=== PATIENT | male | born 1980 | race Caucasian/White ===

== ENCOUNTER 2018-01-10 14:20 | Inpatient (IN) | payer OTHER ==
[2018-01-10 14:44] VITALS: BMI 23.6
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
[2018-01-10] MEDS ORDERED: MAGNESIUM HYDROX 2400MG/30ML ORAL SUSPENSION 30 ML CUP PO PRN (18:12)
[2018-01-10] MEDS ORDERED: MAGNESIUM CITRATE 300 ML BOTTLE PO PRN (18:12)
[2018-01-10] MEDS ORDERED: MENTHOL/PHENOL 1 EACH UD MM PRN (18:12)
[2018-01-10] MEDS ORDERED: guaiFENesin/D-METHORPHAN HB 10 ML UNIT-DOSE CUPS PO PRN (18:12)
[2018-01-10] MEDS ORDERED: LOPERAMIDE HCL 2 MG CAPSULE PO PRN (18:12)
[2018-01-10] MEDS ORDERED: ACETAMINOPHEN 325 MG TABLET (FP) PO PRN (18:12)
[2018-01-10] MEDS ORDERED: P-EPHED 60MG/TRIPROLIDI 2.5MG TABLET PO PRN (18:12)
[2018-01-10] MEDS ORDERED: MAG HYDROX/AL HYDROX/SIMETH 30 ML UNIT-DOSE CUP PO PRN (18:12)
[2018-01-10] MEDS ORDERED: TUBERCULIN PPD 5 TU/0.1ML VIAL ID ONE (20:46)
[2018-01-10] MEDS: THIAMINE HCL 100 MG TABLET (FP) PO SCH (21:35)
[2018-01-10] MEDS: levETIRAcetam 500 MG TABLET (FP) PO SCH (21:35)
[2018-01-10] MEDS ORDERED: MELATONIN 5 MG TABLETS PO PRN (22:00)
[2018-01-10 23:07] LABS: URINE APPEARANCE CLEAR; URINE BILIRUBIN NEGATIVE (<2.0 mg/dL); URINE COLOR AMBER; URINE GLUCOSE (UA) NEGATIVE (NEGATIVE); URINE KETONE TRACE (NEGATIVE); URINE LEUK ESTERASE NEGATIVE (NEGATIVE); URINE NITRITE NEGATIVE (NEGATIVE); URINE PROTEIN NEGATIVE (NEGATIVE); URINE UROBILINOGEN NEGATIVE mg/dL (0.2-1.0)
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
[2018-01-11 10:09] LABS: ALBUMIN 3.2 g/dl (3.4-5.0); ALK PHOS 68 U/L (45-117); ANION GAP 10 MMOL/L (8-16); BILIRUBIN,TOTAL 0.5 mg/dL (0.2-1); BLOOD UREA NITROGEN 10 mg/dL (7-18); CALCIUM 9.2 mg/dL (8.5-10.1); CHLORIDE 106 mmol/L (98-107); CO2 26 mmol/L (21-32); CREATININE 0.7 mg/dL (0.55-1.3); GLUCOSE,RANDOM 85 mg/dL (74-106); POTASSIUM 4.3 mmol/L (3.5-5.1); SGOT/AST 16 U/L (15-37); SGPT/ALT 26 U/L (13-61); SODIUM 142 mmol/L (136-145); TOT PROT 6.6 g/dl (6.4-8.2)
[2018-01-11] MEDS: SERTRALINE HCL 50 MG TABLET (FP) PO SCH (10:10)
[2018-01-11] MEDS: levETIRAcetam 500 MG TABLET (FP) PO SCH ×2 (10:10→21:23)
[2018-01-11] MEDS: NICOTINE 14 MG/24 HOURS TOPICAL PATCH TD SCH (10:11)
[2018-01-11] MEDS: PRENATAL VITAMINS W/ FOLIC ACID TABLET (FP) PO SCH (10:12)
[2018-01-11 10:19] LABS: RDW 13.3 % (11.9-15.9); WHITE BLOOD COUNT 7.6 K/mm3 (4.0-10.0)
[2018-01-11 10:22] LABS: HEMATOCRIT 42.9 % (35.4-49); HEMOGLOBIN 14.7 GM/dL (11.7-16.9); MCH 30.5 pg (25.7-33.7); MCHC 34.2 g/dl (32.0-35.9); MEAN CELL VOLUME 89.2 fl (80-96); MEAN PLT VOLUME 9.7 fl (7.5-11.1); PLATELET COUNT 174 K/MM3 (134-434); RBC 4.82 M/mm3 (4.00-5.60)
[2018-01-11] MEDS ORDERED: METHADONE HCL 10 MG TABLET PO ONE (10:38)
[2018-01-11] MEDS ORDERED: METHADONE HCL 40 MG DISPERSABLE TABLET ONE (10:55)
[2018-01-11] MEDS ORDERED: METHADONE HCL 10 MG TABLET ONE (10:55)
[2018-01-11] MEDS ORDERED: METHADONE 40 MG, METHADONE 20 MG PO ONE (10:55)
--- NOTE | 2018-01-11 11:14 | EKG ---
Test Reason : Blood Pressure : / mmHG Vent. Rate : 065 BPM Atrial Rate : 065 BPM P-R Int : 124 ms QRS Dur : 082 ms QT Int : 374 ms P-R-T Axes : 028 063 053 degrees QTc Int : 388 ms NORMAL SINUS RHYTHM NORMAL ECG NO PREVIOUS ECGS AVAILABLE Confirmed by FLO GALE, GRACE ([id number]) on 01/11/2018 11:14:32 AM Referred By: Confirmed By:GRACE ROSSI MD
[2018-01-11] MEDS: THIAMINE HCL 100 MG TABLET (FP) PO SCH (21:23)
[2018-01-11] MEDS: MELATONIN 5 MG TABLETS PO PRN (21:24)
[2018-01-11] MEDS: IBUPROFEN 400 MG TABLET (FP) PO PRN (21:24)
[2018-01-12] MEDS ORDERED: METHADONE HCL 10 MG TABLET PO SCH (06:00)
[2018-01-12] MEDS ORDERED: METHADONE HCL 40 MG DISPERSABLE TABLET ONE (06:11)
[2018-01-12] MEDS ORDERED: METHADONE HCL 10 MG TABLET ONE (06:11)
[2018-01-12] MEDS: METHADONE 40 MG, METHADONE 20 MG PO SCH (06:18)
[2018-01-12] MEDS: SERTRALINE HCL 50 MG TABLET (FP) PO SCH (10:10)
[2018-01-12] MEDS: levETIRAcetam 500 MG TABLET (FP) PO SCH ×2 (10:10→21:31)
[2018-01-12] MEDS: NICOTINE 14 MG/24 HOURS TOPICAL PATCH TD SCH (10:11)
[2018-01-12] MEDS: PRENATAL VITAMINS W/ FOLIC ACID TABLET (FP) PO SCH (10:11)
[2018-01-12] MEDS: hydrOXYzine PAMOATE 50 MG CAPSULE (FP) PO PRN (10:12)
[2018-01-12] MEDS ORDERED: PNEUMOCOCCAL 23 VACCINE 0.5 ML VIAL IM ONE (12:00)
[2018-01-12] MEDS ORDERED: PNEUMOC 13-VAL CONJ-DIP CRM/PF 0.5 ML DISP.SYRIN IM ONE (12:00)
[2018-01-12] MEDS ORDERED: FLU VACCINE QUAD 60 MCG/0.5 ML (MDV 18-19) IM ONE (12:00)
[2018-01-12] MEDS: THIAMINE HCL 100 MG TABLET (FP) PO SCH (21:31)
[2018-01-13] MEDS ORDERED: METHADONE HCL 10 MG TABLET ONE (04:14)
[2018-01-13] MEDS ORDERED: METHADONE HCL 40 MG DISPERSABLE TABLET ONE (04:15)
[2018-01-13] MEDS: METHADONE 40 MG, METHADONE 20 MG PO SCH (06:25)
[2018-01-13] MEDS: levETIRAcetam 500 MG TABLET (FP) PO SCH ×2 (10:18→21:21)
[2018-01-13] MEDS: SERTRALINE HCL 50 MG TABLET (FP) PO SCH (10:18)
[2018-01-13] MEDS: NICOTINE 14 MG/24 HOURS TOPICAL PATCH TD SCH (10:18)
[2018-01-13] MEDS: PRENATAL VITAMINS W/ FOLIC ACID TABLET (FP) PO SCH (10:18)
[2018-01-13] MEDS: hydrOXYzine PAMOATE 50 MG CAPSULE (FP) PO PRN (10:18)
[2018-01-13] MEDS: THIAMINE HCL 100 MG TABLET (FP) PO SCH (21:21)
[2018-01-14] MEDS ORDERED: METHADONE HCL 40 MG DISPERSABLE TABLET ONE (03:22)
[2018-01-14] MEDS ORDERED: METHADONE HCL 10 MG TABLET ONE (03:22)
[2018-01-14] MEDS: METHADONE 40 MG, METHADONE 20 MG PO SCH (06:21)
[2018-01-14] MEDS: levETIRAcetam 500 MG TABLET (FP) PO SCH ×2 (10:01→21:18)
[2018-01-14] MEDS: PRENATAL VITAMINS W/ FOLIC ACID TABLET (FP) PO SCH (10:01)
[2018-01-14] MEDS: SERTRALINE HCL 50 MG TABLET (FP) PO SCH (10:01)
[2018-01-14] MEDS: NICOTINE 14 MG/24 HOURS TOPICAL PATCH TD SCH (10:02)
[2018-01-14] MEDS: NICOTINE POLACRILEX 2 MG GUM BC PRN (10:02)
[2018-01-14] MEDS: hydrOXYzine PAMOATE 50 MG CAPSULE (FP) PO PRN (10:02)
--- NOTE | 2018-01-14 16:12 | PN ---
[facility] Progress Note Note: Vital Signs Temperature 97.9 F 01/14/18 07:13 Pulse Rate 72 01/14/18 07:13 Respiratory Rate 18 01/14/18 07:13 Blood Pressure 124/69 01/14/18 07:13 O2 Sat by Pulse Oximetry (%) Laboratory Last Values WBC 7.6 K/mm3 (4.0-10.0) 01/11/18 07:00 RBC 4.82 M/mm3 (4.00-5.60) 01/11/18 07:00 Hgb 14.7 GM/dL (11.7-16.9) 01/11/18 07:00 Hct 42.9 % (35.4-49) 01/11/18 07:00 MCV 89.2 fl (80-96) 01/11/18 07:00 MCH 30.5 pg (25.7-33.7) 01/11/18 07:00 MCHC 34.2 g/dl (32.0-35.9) 01/11/18 07:00 RDW 13.3 % (11.9-15.9) 01/11/18 07:00 Plt Count 174 K/MM3 (134-434) D 01/11/18 07:00 MPV 9.7 fl (7.5-11.1) 01/11/18 07:00 Sodium 142 mmol/L (136-145) 01/11/18 07:00 Potassium 4.3 mmol/L (3.5-5.1) 01/11/18 07:00 Chloride 106 mmol/L (98-107) 01/11/18 07:00 Carbon Dioxide 26 mmol/L (21-32) 01/11/18 07:00 Anion Gap 10 MMOL/L (8-16) 01/11/18 07:00 BUN 10 mg/dL (7-18) 01/11/18 07:00 Creatinine 0.7 mg/dL (0.55-1.3) 01/11/18 07:00 Creat Clearance w eGFR > 60 (>60) 01/11/18 07:00 Random Glucose 85 mg/dL (74-106) 01/11/18 07:00 Calcium 9.2 mg/dL (8.5-10.1) 01/11/18 07:00 Total Bilirubin 0.5 mg/dL (0.2-1) 01/11/18 07:00 AST 16 U/L (15-37) 01/11/18 07:00 ALT 26 U/L (13-61) 01/11/18 07:00 Alkaline Phosphatase 68 U/L (45-117) 01/11/18 07:00 Total Protein 6.6 g/dl (6.4-8.2) 01/11/18 07:00 Albumin 3.2 g/dl (3.4-5.0) L 01/11/18 07:00 Urine Color Lyric 01/10/18 22:02 Urine Appearance Clear 01/10/18 22:02 Urine pH 6.0 (5.0-8.0) 01/10/18 22:02 Ur Specific [place] 1.023 (1.001-1.035) 01/10/18 22:02 Urine Protein Negative (NEGATIVE) 01/10/18 22:02 Urine Glucose (UA) Negative (NEGATIVE) 01/10/18 22:02 Urine Ketones Trace (NEGATIVE) H 01/10/18 22:02 Urine Blood Negative (NEGATIVE) 01/10/18 22:02 Urine Nitrite Negative (NEGATIVE) 01/10/18 22:02 Urine Bilirubin Negative (<2.0 mg/dL) 01/10/18 22:02 Urine Urobilinogen Negative mg/dL (0.2-1.0) 01/10/18 22:02 Ur Leukocyte Esterase Negative (NEGATIVE) 01/10/18 22:02 Levetiracetam 5.1 MCG/ML (10.0-40.0) L 01/11/18 07:00 RPR Titer Nonreactive (NONREACTIVE) 01/11/18 07:00 low keppra levels loading dose 500 mg ordered repeat keppra levels in AM
[2018-01-14] MEDS ORDERED: levETIRAcetam 500 MG TABLET (FP) PO ONE (16:30)
[2018-01-14] MEDS: THIAMINE HCL 100 MG TABLET (FP) PO SCH (21:18)
[2018-01-15] MEDS ORDERED: METHADONE HCL 10 MG TABLET ONE (04:54)
[2018-01-15] MEDS ORDERED: METHADONE HCL 40 MG DISPERSABLE TABLET ONE (04:54)
[2018-01-15] MEDS: METHADONE 40 MG, METHADONE 20 MG PO SCH (06:17)
[2018-01-15] MEDS: PRENATAL VITAMINS W/ FOLIC ACID TABLET (FP) PO SCH (10:02)
[2018-01-15] MEDS: SERTRALINE HCL 50 MG TABLET (FP) PO SCH (10:02)
[2018-01-15] MEDS: levETIRAcetam 500 MG TABLET (FP) PO SCH ×2 (10:02→21:15)
[2018-01-15] MEDS: NICOTINE 14 MG/24 HOURS TOPICAL PATCH TD SCH (10:02)
[2018-01-15] MEDS: hydrOXYzine PAMOATE 50 MG CAPSULE (FP) PO PRN (10:03)
[2018-01-15] MEDS: NICOTINE POLACRILEX 2 MG GUM BC PRN (10:04)
[2018-01-15] MEDS: THIAMINE HCL 100 MG TABLET (FP) PO SCH (21:15)
[2018-01-16] MEDS ORDERED: METHADONE HCL 10 MG TABLET ONE (03:19)
[2018-01-16] MEDS ORDERED: METHADONE HCL 40 MG DISPERSABLE TABLET ONE (03:20)
[2018-01-16] MEDS: METHADONE 40 MG, METHADONE 20 MG PO SCH (06:14)
[2018-01-16] MEDS: PRENATAL VITAMINS W/ FOLIC ACID TABLET (FP) PO SCH (10:16)
[2018-01-16] MEDS: NICOTINE 14 MG/24 HOURS TOPICAL PATCH TD SCH (10:16)
[2018-01-16] MEDS: SERTRALINE HCL 50 MG TABLET (FP) PO SCH (10:16)
[2018-01-16] MEDS: levETIRAcetam 500 MG TABLET (FP) PO SCH ×2 (10:16→21:19)
[2018-01-16] MEDS: hydrOXYzine PAMOATE 50 MG CAPSULE (FP) PO PRN (10:17)
[2018-01-16] MEDS: THIAMINE HCL 100 MG TABLET (FP) PO SCH (21:19)
[2018-01-17] MEDS ORDERED: METHADONE HCL 10 MG TABLET ONE (04:27)
[2018-01-17] MEDS ORDERED: METHADONE HCL 40 MG DISPERSABLE TABLET ONE (04:27)
[2018-01-17] MEDS: METHADONE 40 MG, METHADONE 20 MG PO SCH (06:12)
[2018-01-17] MEDS: SERTRALINE HCL 50 MG TABLET (FP) PO SCH (10:03)
[2018-01-17] MEDS: PRENATAL VITAMINS W/ FOLIC ACID TABLET (FP) PO SCH (10:03)
[2018-01-17] MEDS: levETIRAcetam 500 MG TABLET (FP) PO SCH ×2 (10:03→21:19)
[2018-01-17] MEDS: NICOTINE 14 MG/24 HOURS TOPICAL PATCH TD SCH (10:03)
[2018-01-17] MEDS: hydrOXYzine PAMOATE 50 MG CAPSULE (FP) PO PRN (10:04)
[2018-01-17] MEDS: THIAMINE HCL 100 MG TABLET (FP) PO SCH (21:19)
[2018-01-18] MEDS ORDERED: METHADONE HCL 10 MG TABLET ONE (05:47)
[2018-01-18] MEDS ORDERED: METHADONE HCL 40 MG DISPERSABLE TABLET ONE (05:48)
[2018-01-18] MEDS: METHADONE 40 MG, METHADONE 20 MG PO SCH (06:16)
[2018-01-18] MEDS: levETIRAcetam 500 MG TABLET (FP) PO SCH ×2 (10:07→21:27)
[2018-01-18] MEDS: PRENATAL VITAMINS W/ FOLIC ACID TABLET (FP) PO SCH (10:07)
[2018-01-18] MEDS: SERTRALINE HCL 50 MG TABLET (FP) PO SCH (10:07)
[2018-01-18] MEDS: NICOTINE POLACRILEX 2 MG GUM BC PRN (10:07)
[2018-01-18] MEDS: NICOTINE 14 MG/24 HOURS TOPICAL PATCH TD SCH (10:08)
[2018-01-18] MEDS: hydrOXYzine PAMOATE 50 MG CAPSULE (FP) PO PRN (10:08)
[2018-01-18] MEDS: THIAMINE HCL 100 MG TABLET (FP) PO SCH (21:27)
[2018-01-18] MEDS: MELATONIN 5 MG TABLETS PO PRN (21:28)
[2018-01-19] MEDS ORDERED: METHADONE HCL 10 MG TABLET ONE (06:09)
[2018-01-19] MEDS: METHADONE 40 MG, METHADONE 20 MG PO SCH (06:10)
[2018-01-19] MEDS ORDERED: METHADONE HCL 40 MG DISPERSABLE TABLET ONE (06:10)
[2018-01-19] MEDS: levETIRAcetam 500 MG TABLET (FP) PO SCH ×2 (09:58→21:25)
[2018-01-19] MEDS: SERTRALINE HCL 50 MG TABLET (FP) PO SCH (09:58)
[2018-01-19] MEDS: hydrOXYzine PAMOATE 50 MG CAPSULE (FP) PO PRN (09:59)
[2018-01-19] MEDS: PRENATAL VITAMINS W/ FOLIC ACID TABLET (FP) PO SCH (09:59)
[2018-01-19] MEDS: NICOTINE 14 MG/24 HOURS TOPICAL PATCH TD SCH (10:00)
[2018-01-19] MEDS: THIAMINE HCL 100 MG TABLET (FP) PO SCH (21:25)
[2018-01-20] MEDS ORDERED: METHADONE HCL 40 MG DISPERSABLE TABLET ONE (02:17)
[2018-01-20] MEDS ORDERED: METHADONE HCL 10 MG TABLET ONE (02:17)
[2018-01-20] MEDS: METHADONE 40 MG, METHADONE 20 MG PO SCH (06:04)
[2018-01-20] MEDS: PRENATAL VITAMINS W/ FOLIC ACID TABLET (FP) PO SCH (09:48)
[2018-01-20] MEDS: NICOTINE POLACRILEX 2 MG GUM BC PRN (09:48)
[2018-01-20] MEDS: hydrOXYzine PAMOATE 50 MG CAPSULE (FP) PO PRN (09:48)
[2018-01-20] MEDS: SERTRALINE HCL 50 MG TABLET (FP) PO SCH (09:48)
[2018-01-20] MEDS: NICOTINE 14 MG/24 HOURS TOPICAL PATCH TD SCH (09:48)
[2018-01-20] MEDS: levETIRAcetam 500 MG TABLET (FP) PO SCH ×2 (09:48→21:19)
[2018-01-20] MEDS: THIAMINE HCL 100 MG TABLET (FP) PO SCH (21:19)
[2018-01-21] MEDS ORDERED: METHADONE HCL 10 MG TABLET ONE (04:11)
[2018-01-21] MEDS ORDERED: METHADONE HCL 40 MG DISPERSABLE TABLET ONE (04:11)
[2018-01-21] MEDS: METHADONE 40 MG, METHADONE 20 MG PO SCH (06:21)
[2018-01-21] MEDS: PRENATAL VITAMINS W/ FOLIC ACID TABLET (FP) PO SCH (09:53)
[2018-01-21] MEDS: SERTRALINE HCL 50 MG TABLET (FP) PO SCH (09:53)
[2018-01-21] MEDS: levETIRAcetam 500 MG TABLET (FP) PO SCH ×2 (09:53→21:23)
[2018-01-21] MEDS: NICOTINE 14 MG/24 HOURS TOPICAL PATCH TD SCH (09:53)
[2018-01-21] MEDS: hydrOXYzine PAMOATE 50 MG CAPSULE (FP) PO PRN (09:54)
[2018-01-21] MEDS: THIAMINE HCL 100 MG TABLET (FP) PO SCH (21:23)
[2018-01-22] MEDS ORDERED: METHADONE HCL 40 MG DISPERSABLE TABLET ONE (04:21)
[2018-01-22] MEDS ORDERED: METHADONE HCL 10 MG TABLET ONE (04:21)
[2018-01-22] MEDS: METHADONE 40 MG, METHADONE 20 MG PO SCH (06:02)
[2018-01-22] MEDS: levETIRAcetam 500 MG TABLET (FP) PO SCH ×2 (09:40→21:34)
[2018-01-22] MEDS: NICOTINE 14 MG/24 HOURS TOPICAL PATCH TD SCH (09:40)
[2018-01-22] MEDS: hydrOXYzine PAMOATE 50 MG CAPSULE (FP) PO PRN (09:40)
[2018-01-22] MEDS: PRENATAL VITAMINS W/ FOLIC ACID TABLET (FP) PO SCH (09:40)
[2018-01-22] MEDS: SERTRALINE HCL 50 MG TABLET (FP) PO SCH (09:40)
[2018-01-22] MEDS: NICOTINE POLACRILEX 2 MG GUM BC PRN (09:41)
[2018-01-22] MEDS: IBUPROFEN 400 MG TABLET (FP) PO PRN (12:35)
[2018-01-22] MEDS: THIAMINE HCL 100 MG TABLET (FP) PO SCH (21:34)
[2018-01-22] MEDS: MELATONIN 5 MG TABLETS PO PRN (21:35)
[2018-01-23] MEDS ORDERED: METHADONE HCL 10 MG TABLET ONE (04:33)
[2018-01-23] MEDS ORDERED: METHADONE HCL 40 MG DISPERSABLE TABLET ONE (04:33)
[2018-01-23] MEDS: METHADONE 40 MG, METHADONE 20 MG PO SCH (06:04)
[2018-01-23] MEDS: SERTRALINE HCL 50 MG TABLET (FP) PO SCH (10:11)
[2018-01-23] MEDS: PRENATAL VITAMINS W/ FOLIC ACID TABLET (FP) PO SCH (10:11)
[2018-01-23] MEDS: hydrOXYzine PAMOATE 50 MG CAPSULE (FP) PO PRN (10:11)
[2018-01-23] MEDS: levETIRAcetam 500 MG TABLET (FP) PO SCH ×2 (10:11→21:34)
[2018-01-23] MEDS: NICOTINE 14 MG/24 HOURS TOPICAL PATCH TD SCH (10:12)
[2018-01-23] MEDS: MELATONIN 5 MG TABLETS PO PRN (21:34)
[2018-01-23] MEDS: THIAMINE HCL 100 MG TABLET (FP) PO SCH (21:34)
[2018-01-24] MEDS ORDERED: METHADONE HCL 10 MG TABLET ONE (05:58)
[2018-01-24] MEDS ORDERED: METHADONE HCL 40 MG DISPERSABLE TABLET ONE (05:59)
[2018-01-24] MEDS: METHADONE 40 MG, METHADONE 20 MG PO SCH (06:01)
[2018-01-24] MEDS: PRENATAL VITAMINS W/ FOLIC ACID TABLET (FP) PO SCH (10:12)
[2018-01-24] MEDS: SERTRALINE HCL 50 MG TABLET (FP) PO SCH (10:12)
[2018-01-24] MEDS: NICOTINE 14 MG/24 HOURS TOPICAL PATCH TD SCH (10:12)
[2018-01-24] MEDS: levETIRAcetam 500 MG TABLET (FP) PO SCH ×2 (10:12→21:28)
[2018-01-24] MEDS: THIAMINE HCL 100 MG TABLET (FP) PO SCH (21:28)
[2018-01-24] MEDS: IBUPROFEN 400 MG TABLET (FP) PO PRN (21:29)
[2018-01-25] MEDS ORDERED: METHADONE HCL 10 MG TABLET ONE (05:27)
[2018-01-25] MEDS ORDERED: METHADONE HCL 40 MG DISPERSABLE TABLET ONE (05:28)
[2018-01-25] MEDS: METHADONE 40 MG, METHADONE 20 MG PO SCH (06:08)
[2018-01-25] MEDS: NICOTINE POLACRILEX 2 MG GUM BC PRN (09:58)
[2018-01-25] MEDS: levETIRAcetam 500 MG TABLET (FP) PO SCH ×2 (09:58→21:28)
[2018-01-25] MEDS: PRENATAL VITAMINS W/ FOLIC ACID TABLET (FP) PO SCH (09:58)
[2018-01-25] MEDS: SERTRALINE HCL 50 MG TABLET (FP) PO SCH (09:58)
[2018-01-25] MEDS: hydrOXYzine PAMOATE 50 MG CAPSULE (FP) PO PRN (09:58)
[2018-01-25] MEDS: NICOTINE 14 MG/24 HOURS TOPICAL PATCH TD SCH (09:58)
[2018-01-25] MEDS: THIAMINE HCL 100 MG TABLET (FP) PO SCH (21:28)
[2018-01-25] MEDS: MELATONIN 5 MG TABLETS PO PRN (21:28)
[2018-01-26] MEDS ORDERED: METHADONE HCL 40 MG DISPERSABLE TABLET ONE (04:29)
[2018-01-26] MEDS ORDERED: METHADONE HCL 10 MG TABLET ONE (04:29)
[2018-01-26] MEDS: METHADONE 40 MG, METHADONE 20 MG PO SCH (06:31)
[2018-01-26] MEDS: SERTRALINE HCL 50 MG TABLET (FP) PO SCH (10:00)
[2018-01-26] MEDS: PRENATAL VITAMINS W/ FOLIC ACID TABLET (FP) PO SCH (10:00)
[2018-01-26] MEDS: levETIRAcetam 500 MG TABLET (FP) PO SCH ×2 (10:00→21:21)
[2018-01-26] MEDS: NICOTINE POLACRILEX 2 MG GUM BC PRN (10:01)
[2018-01-26] MEDS: NICOTINE 14 MG/24 HOURS TOPICAL PATCH TD SCH (10:01)
[2018-01-26] MEDS: hydrOXYzine PAMOATE 50 MG CAPSULE (FP) PO PRN (10:02)
[2018-01-26] MEDS: MELATONIN 5 MG TABLETS PO PRN (21:21)
[2018-01-26] MEDS: THIAMINE HCL 100 MG TABLET (FP) PO SCH (21:21)
[2018-01-27] MEDS ORDERED: METHADONE HCL 10 MG TABLET ONE (03:23)
[2018-01-27] MEDS ORDERED: METHADONE HCL 40 MG DISPERSABLE TABLET ONE (03:24)
[2018-01-27] MEDS: METHADONE 40 MG, METHADONE 20 MG PO SCH (06:05)
[2018-01-27] MEDS: NICOTINE POLACRILEX 2 MG GUM BC PRN (10:40)
[2018-01-27] MEDS: hydrOXYzine PAMOATE 50 MG CAPSULE (FP) PO PRN (10:40)
[2018-01-27] MEDS: PRENATAL VITAMINS W/ FOLIC ACID TABLET (FP) PO SCH (10:40)
[2018-01-27] MEDS: levETIRAcetam 500 MG TABLET (FP) PO SCH ×2 (10:40→21:23)
[2018-01-27] MEDS: SERTRALINE HCL 50 MG TABLET (FP) PO SCH (10:40)
[2018-01-27] MEDS: NICOTINE 14 MG/24 HOURS TOPICAL PATCH TD SCH (10:49)
[2018-01-27] MEDS: THIAMINE HCL 100 MG TABLET (FP) PO SCH (21:23)
[2018-01-27] MEDS: MELATONIN 5 MG TABLETS PO PRN (21:23)
[2018-01-28] MEDS ORDERED: METHADONE HCL 10 MG TABLET ONE (04:11)
[2018-01-28] MEDS ORDERED: METHADONE HCL 40 MG DISPERSABLE TABLET ONE (04:11)
[2018-01-28] MEDS: METHADONE 40 MG, METHADONE 20 MG PO SCH (06:11)
[2018-01-28] MEDS: SERTRALINE HCL 50 MG TABLET (FP) PO SCH (10:50)
[2018-01-28] MEDS: levETIRAcetam 500 MG TABLET (FP) PO SCH ×2 (10:51→21:42)
[2018-01-28] MEDS: hydrOXYzine PAMOATE 50 MG CAPSULE (FP) PO PRN (10:51)
[2018-01-28] MEDS: NICOTINE 14 MG/24 HOURS TOPICAL PATCH TD SCH (10:51)
[2018-01-28] MEDS: PRENATAL VITAMINS W/ FOLIC ACID TABLET (FP) PO SCH (10:51)
[2018-01-28] MEDS: ALBUTEROL SO4 8 GM HFA INHALER IH SCH ×2 (14:27→17:14)
[2018-01-28] MEDS ORDERED: ALBUTEROL SO4 8 GM HFA INHALER IH PRN (16:46)
[2018-01-28] MEDS: THIAMINE HCL 100 MG TABLET (FP) PO SCH (21:42)
[2018-01-29] MEDS ORDERED: METHADONE HCL 40 MG DISPERSABLE TABLET ONE (03:38)
[2018-01-29] MEDS ORDERED: METHADONE HCL 10 MG TABLET ONE (03:38)
[2018-01-29] MEDS: METHADONE 40 MG, METHADONE 20 MG PO SCH (06:09)
[2018-01-29] MEDS: SERTRALINE HCL 50 MG TABLET (FP) PO SCH (10:19)
[2018-01-29] MEDS: levETIRAcetam 500 MG TABLET (FP) PO SCH ×2 (10:19→21:46)
[2018-01-29] MEDS: PRENATAL VITAMINS W/ FOLIC ACID TABLET (FP) PO SCH (10:19)
[2018-01-29] MEDS: NICOTINE 14 MG/24 HOURS TOPICAL PATCH TD SCH (10:20)
[2018-01-29] MEDS: hydrOXYzine PAMOATE 50 MG CAPSULE (FP) PO PRN (10:20)
[2018-01-29] MEDS: THIAMINE HCL 100 MG TABLET (FP) PO SCH (21:46)
[2018-01-30] MEDS ORDERED: METHADONE HCL 10 MG TABLET ONE (03:38)
[2018-01-30] MEDS ORDERED: METHADONE HCL 40 MG DISPERSABLE TABLET ONE (03:39)
[2018-01-30] MEDS: METHADONE 40 MG, METHADONE 20 MG PO SCH (06:07)
[2018-01-30] MEDS: hydrOXYzine PAMOATE 50 MG CAPSULE (FP) PO PRN ×2 (10:13→21:43)
[2018-01-30] MEDS: levETIRAcetam 500 MG TABLET (FP) PO SCH ×2 (10:13→21:43)
[2018-01-30] MEDS: SERTRALINE HCL 50 MG TABLET (FP) PO SCH (10:13)
[2018-01-30] MEDS: PRENATAL VITAMINS W/ FOLIC ACID TABLET (FP) PO SCH (10:13)
[2018-01-30] MEDS: NICOTINE 14 MG/24 HOURS TOPICAL PATCH TD SCH (10:14)
[2018-01-30] MEDS: THIAMINE HCL 100 MG TABLET (FP) PO SCH (21:43)
[2018-01-30] MEDS: MELATONIN 5 MG TABLETS PO PRN (21:43)
[2018-01-31] MEDS ORDERED: METHADONE HCL 40 MG DISPERSABLE TABLET ONE (07:03)
[2018-01-31] MEDS ORDERED: METHADONE HCL 10 MG TABLET ONE (07:03)
[2018-01-31] MEDS: METHADONE 40 MG, METHADONE 20 MG PO SCH (07:05)
[2018-01-31] MEDS: levETIRAcetam 500 MG TABLET (FP) PO SCH ×2 (10:25→21:37)
[2018-01-31] MEDS: PRENATAL VITAMINS W/ FOLIC ACID TABLET (FP) PO SCH (10:25)
[2018-01-31] MEDS: NICOTINE 14 MG/24 HOURS TOPICAL PATCH TD SCH (10:25)
[2018-01-31] MEDS: hydrOXYzine PAMOATE 50 MG CAPSULE (FP) PO PRN (10:25)
[2018-01-31] MEDS: SERTRALINE HCL 50 MG TABLET (FP) PO SCH (10:25)
[2018-01-31] MEDS: THIAMINE HCL 100 MG TABLET (FP) PO SCH (21:37)
[2018-02-01] MEDS ORDERED: METHADONE HCL 40 MG DISPERSABLE TABLET ONE (03:39)
[2018-02-01] MEDS ORDERED: METHADONE HCL 10 MG TABLET ONE (03:39)
[2018-02-01] MEDS: METHADONE 40 MG, METHADONE 20 MG PO SCH (06:07)
[2018-02-01] MEDS: SERTRALINE HCL 50 MG TABLET (FP) PO SCH (10:11)
[2018-02-01] MEDS: levETIRAcetam 500 MG TABLET (FP) PO SCH ×2 (10:11→21:37)
[2018-02-01] MEDS: PRENATAL VITAMINS W/ FOLIC ACID TABLET (FP) PO SCH (10:11)
[2018-02-01] MEDS: NICOTINE 14 MG/24 HOURS TOPICAL PATCH TD SCH (10:12)
[2018-02-01] MEDS: hydrOXYzine PAMOATE 50 MG CAPSULE (FP) PO PRN ×2 (10:14→21:37)
[2018-02-01] MEDS: NICOTINE POLACRILEX 2 MG GUM BC PRN (10:17)
[2018-02-01] MEDS: MELATONIN 5 MG TABLETS PO PRN (21:37)
[2018-02-01] MEDS: THIAMINE HCL 100 MG TABLET (FP) PO SCH (21:37)
[2018-02-02] MEDS ORDERED: METHADONE HCL 40 MG DISPERSABLE TABLET ONE (04:30)
[2018-02-02] MEDS ORDERED: METHADONE HCL 10 MG TABLET ONE (04:30)
[2018-02-02] MEDS: METHADONE 40 MG, METHADONE 20 MG PO SCH (06:05)
[2018-02-02] MEDS: PRENATAL VITAMINS W/ FOLIC ACID TABLET (FP) PO SCH (10:19)
[2018-02-02] MEDS: NICOTINE 14 MG/24 HOURS TOPICAL PATCH TD SCH (10:19)
[2018-02-02] MEDS: SERTRALINE HCL 50 MG TABLET (FP) PO SCH (10:19)
[2018-02-02] MEDS: levETIRAcetam 500 MG TABLET (FP) PO SCH ×2 (10:19→21:44)
[2018-02-02] MEDS: THIAMINE HCL 100 MG TABLET (FP) PO SCH (21:44)
[2018-02-03] MEDS ORDERED: METHADONE HCL 10 MG TABLET ONE (06:23)
[2018-02-03] MEDS ORDERED: METHADONE HCL 40 MG DISPERSABLE TABLET ONE (06:23)
[2018-02-03] MEDS: METHADONE 40 MG, METHADONE 20 MG PO SCH (06:23)
[2018-02-03] MEDS: PRENATAL VITAMINS W/ FOLIC ACID TABLET (FP) PO SCH (10:09)
[2018-02-03] MEDS: SERTRALINE HCL 50 MG TABLET (FP) PO SCH (10:09)
[2018-02-03] MEDS: levETIRAcetam 500 MG TABLET (FP) PO SCH ×2 (10:09→21:39)
[2018-02-03] MEDS: NICOTINE 14 MG/24 HOURS TOPICAL PATCH TD SCH (10:09)
[2018-02-03] MEDS: hydrOXYzine PAMOATE 50 MG CAPSULE (FP) PO PRN (10:10)
[2018-02-03] MEDS: THIAMINE HCL 100 MG TABLET (FP) PO SCH (21:39)
[2018-02-04] MEDS ORDERED: METHADONE HCL 10 MG TABLET ONE (04:25)
[2018-02-04] MEDS ORDERED: METHADONE HCL 40 MG DISPERSABLE TABLET ONE (04:26)
[2018-02-04] MEDS: METHADONE 40 MG, METHADONE 20 MG PO SCH (06:11)
[2018-02-04] MEDS: levETIRAcetam 500 MG TABLET (FP) PO SCH ×2 (10:06→21:42)
[2018-02-04] MEDS: hydrOXYzine PAMOATE 50 MG CAPSULE (FP) PO PRN (10:06)
[2018-02-04] MEDS: PRENATAL VITAMINS W/ FOLIC ACID TABLET (FP) PO SCH (10:06)
[2018-02-04] MEDS: SERTRALINE HCL 50 MG TABLET (FP) PO SCH (10:06)
[2018-02-04] MEDS: NICOTINE 14 MG/24 HOURS TOPICAL PATCH TD SCH (10:06)
[2018-02-04] MEDS: THIAMINE HCL 100 MG TABLET (FP) PO SCH (21:42)
[2018-02-05] MEDS ORDERED: METHADONE HCL 10 MG TABLET ONE (04:13)
[2018-02-05] MEDS ORDERED: METHADONE HCL 40 MG DISPERSABLE TABLET ONE (04:13)
[2018-02-05] MEDS: METHADONE 40 MG, METHADONE 20 MG PO SCH (06:04)
[2018-02-05] MEDS: SERTRALINE HCL 50 MG TABLET (FP) PO SCH (10:08)
[2018-02-05] MEDS: NICOTINE 14 MG/24 HOURS TOPICAL PATCH TD SCH (10:08)
[2018-02-05] MEDS: levETIRAcetam 500 MG TABLET (FP) PO SCH ×2 (10:08→21:35)
[2018-02-05] MEDS: PRENATAL VITAMINS W/ FOLIC ACID TABLET (FP) PO SCH (10:08)
[2018-02-05] MEDS: hydrOXYzine PAMOATE 50 MG CAPSULE (FP) PO PRN (10:11)
[2018-02-05] MEDS: IBUPROFEN 400 MG TABLET (FP) PO PRN (10:11)
[2018-02-05] MEDS: MELATONIN 5 MG TABLETS PO PRN (21:35)
[2018-02-05] MEDS: THIAMINE HCL 100 MG TABLET (FP) PO SCH (21:35)
[2018-02-06] MEDS ORDERED: METHADONE HCL 10 MG TABLET ONE (05:46)
[2018-02-06] MEDS ORDERED: METHADONE HCL 40 MG DISPERSABLE TABLET ONE (05:46)
[2018-02-06] MEDS: METHADONE 40 MG, METHADONE 20 MG PO SCH (06:15)
--- NOTE | 2018-02-06 10:11 | PN ---
Psychiatric Progress Note Vital Signs: Vital Signs Period Temp Pulse Resp BP Sys/Sotomayor Pulse Ox Last 24 Hr 98.4 F 66 18-18 106/68 Date of Session: 02/06/18 Chief Complaint:: Discharge Note HPI: Patient addressing Alcohol Dependence comorbid with Opioid Dependence on Agonist Therapy, Nicotine Dependence, Postraumatic Stress Disorder, Substance- Induced Anxiety Disorder and Substance-Induced Sleep Disorder ROS: Seizure Disorder was medically managed Current Medications: Active Medications Generic Name Dose Route Start Last Admin Trade Name Freq PRN Reason Stop Dose Admin Acetaminophen 650 mg 01/10/18 18:12 Tylenol - PO Q4H PRN FEVER Al Hydroxide/Mg Hydroxide 30 ml 01/10/18 18:12 Mylanta Oral Suspension - PO Q6H PRN DYSPEPSIA Albuterol Sulfate 2 puff 01/28/18 16:46 01/29/18 10:20 Ventolin Hfa Inhaler - IH 2 puff Q4H PRN Administration WHEEZING Eucalyptus/Menthol/Phenol/Sorbitol 1 each 01/10/18 18:12 Cepastat Lozenge - MM Q4H PRN SORE THROAT Guaifenesin 10 ml 01/10/18 18:12 Robitussin Dm - PO Q6H PRN COUGH Hydroxyzine Pamoate 50 mg 01/10/18 18:12 02/05/18 10:11 Vistaril - PO 50 mg Q4H PRN Administration AGITATION Ibuprofen 400 mg 01/10/18 18:12 02/05/18 10:11 Motrin - PO 400 mg Q6H PRN Administration Pain level 4-6 Levetiracetam 500 mg 01/10/18 22:00 02/05/18 21:35 Keppra - PO 500 mg BID JAYLEEN Administration Loperamide HCl 4 mg 01/10/18 18:12 Imodium - PO Q6H PRN DIARRHEA Magnesium Citrate 300 ml 01/10/18 18:12 Citroma - PO Q48H PRN CONSTIPATION Magnesium Hydroxide 30 ml 01/10/18 18:12 Milk Of Magnesia - PO DAILY PRN CONSTIPATION Melatonin 10 mg 01/11/18 22:00 02/05/18 21:35 Melatonin PO 10 mg HS PRN Administration INSOMNIA Methadone HCl 40 mg/ Methadone 60 mg 01/31/18 07:00 02/06/18 06:15 HCl 20 mg PO 02/07/18 06:59 60 mg DAILY@0600 JAYLEEN Administration Nicotine 14 mg 01/11/18 10:00 02/05/18 10:08 Nicoderm Patch - TD Not Given DAILY JALYEEN Nicotine Polacrilex 2 mg 01/10/18 18:12 02/01/18 10:17 Nicorette Gum - BC 2 mg Q2H PRN Administration NICOTINE REPLACEMENT RX Multivit/Folic Acid/Iron 1 tab 01/11/18 10:00 02/05/18 10:08 Vitamins ([facility]) - PO 1 tab DAILY JAYLEEN Administration Pseudoephedrine/Triprolidine 1 combo 01/10/18 18:12 Actifed - PO TID PRN NASAL CONGESTION Sertraline HCl 100 mg 01/11/18 10:00 02/05/18 10:08 Zoloft - PO 100 mg DAILY JAYLEEN Administration Thiamine HCl 100 mg 01/10/18 22:00 02/05/18 21:35 Vitamin B1 - PO 100 mg HS JAYLEEN Administration Current Side Effect: No Lab tests ordered: Yes Lab tests reviewed: Yes Provider note:: Patient will complete this program on 02/07/18. He has met his treatment goals and will continue to address his issues in outpatient treatment at [facility] at [address] [place] [id number]. 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 He responded well to Zoloft 100 mg po daily. Script for that medication will be electronically transmitted to [facility] at [address] [place] [id number]. He is stable for discharge on 02/07/18 Total face to face time:: 35 Mental Status Exam - Mental Status Exam Alert and Oriented to: Time, Place, Person Cognitive Function: Fair Patient Appearance: Well Groomed Mood: Hopeful, Euthymic Affect: Appropriate Patient Behavior: Cooperative Speech Pattern: Clear Voice Loudness: Normal Thought Process: Intact Thought Disorder: Not Present Hallucinations: Denies Suicidal Ideation: Denies Homicidal Ideation: Denies Insight/Judgement: Fair Sleep: Fair Appetite: Good Muscle strength/Tone: Normal Gait/Station: Normal Psychiatric Treatment Plan - Problem List (1) Alcohol dependence Current Visit: Yes Qualifiers: Substance use status: uncomplicated Qualified Code(s): F10.20 - Alcohol dependence, uncomplicated (2) Opioid dependence on agonist therapy Current Visit: Yes (3) Nicotine dependence Current Visit: Yes (4) PTSD (post-traumatic stress disorder) Current Visit: Yes (5) Substance-induced anxiety disorder Current Visit: Yes (6) Substance-induced sleep disorder Current Visit: Yes (7) Seizure disorder Current Visit: Yes Comment: on keppra 500 mg bid Initial treatment plan: Patient will be discharged tomorrow and referred to [facility] for outpatient treatment
[2018-02-06] MEDS: levETIRAcetam 500 MG TABLET (FP) PO SCH ×2 (10:37→21:59)
[2018-02-06] MEDS: SERTRALINE HCL 50 MG TABLET (FP) PO SCH (10:37)
[2018-02-06] MEDS: PRENATAL VITAMINS W/ FOLIC ACID TABLET (FP) PO SCH (10:37)
[2018-02-06] MEDS: hydrOXYzine PAMOATE 50 MG CAPSULE (FP) PO PRN (10:38)
[2018-02-06] MEDS: NICOTINE 14 MG/24 HOURS TOPICAL PATCH TD SCH (10:38)
[2018-02-06] MEDS: THIAMINE HCL 100 MG TABLET (FP) PO SCH (21:59)
[2018-02-07] MEDS ORDERED: METHADONE HCL 40 MG DISPERSABLE TABLET ONE (04:16)
[2018-02-07] MEDS ORDERED: METHADONE HCL 10 MG TABLET ONE (04:16)
[2018-02-07] MEDS: METHADONE 40 MG, METHADONE 20 MG PO SCH (05:58)
[2018-02-07 07:27] VITALS: BP 107/73; PULSE 78; TEMP 98.2
[2018-02-07] MEDS: levETIRAcetam 500 MG TABLET (FP) PO SCH (10:01)
[2018-02-07] MEDS: PRENATAL VITAMINS W/ FOLIC ACID TABLET (FP) PO SCH (10:01)
[2018-02-07] MEDS: SERTRALINE HCL 50 MG TABLET (FP) PO SCH (10:01)
[2018-02-07] MEDS: NICOTINE 14 MG/24 HOURS TOPICAL PATCH TD SCH (10:01)
--- NOTE | 2018-02-07 10:10 | PN ---
S Progress Note Note: PT DISCHARGING TODAY. ALERT O X 3. NAD. PT REPORTS HE HAS PRIMARY CARE PROVIDER , DR. ANNE AT [address] [place] [address] FOR MEDICAL MANAGEMENT. PT REPORTS HE HAS OWN MEDS AT HOME. Vital Signs - 24 hr 02/07/18 02/07/18 02/07/18 00:30 03:30 07:26 Temperature 98.2 F Pulse Rate 78 Respiratory 18 18 18 Rate Blood Pressure 107/73 NAD F/U WITH PMD WITHIN 1 WEEK AFTER DISCHARGE.
== END 2018-02-07 10:15 | disposition home or self-care (01) | DRG 772 ==
LOC: YASAS 14:20 → Y5N 16:51 → Y3E 01-26 20:56 → Y5N 01-26 20:58
PROVIDERS: ADMIT Psychiatry & Neurology Psychiatry; ATTEND Psychiatry & Neurology Psychiatry
PROC: HZ42ZZZ Group Counseling for Substance Abuse Treatment, Cognitive-Behavioral (ICD-10-PCS; principal; 2018-01-10)
DX: F10.20 Alcohol dependence, uncomplicated (principal); F11.20 Opioid dependence, uncomplicated; F17.210 Nicotine dependence, cigarettes, uncomplicated; F43.10 Post-traumatic stress disorder, unspecified; F19.282 Other psychoactive substance dependence with psychoactive substance-induced sleep disorder; F19.280 Other psychoactive substance dependence with psychoactive substance-induced anxiety disorder; G40.89 Other seizures; Z88.0 Allergy status to penicillin
CPT/HCPCS: 36415; 80053; 81003; 85027; 86593; 86803; 87389; 90688; 90732; 93005; 93010; G0008; G0009

== ENCOUNTER 2019-11-03 10:58 | Inpatient (IN) | payer OTHER ==
--- NOTE | 2019-11-03 11:22 | BHS.RME ---
Substance Use & Tx History - Substance Use History Alcohol Substance amount: 2 pints vodka Frequency of use: Daily Substance route: Oral Date of Last Use: 11/03/19 Xanax Substance amount: 2 mg 10-15 tabs Frequency of use: Daily Substance route: Oral Date of Last Use: 11/03/19 Nicotine Substance amount: 1 pack Frequency of use: Daily Substance route: Smoking Date of Last Use: 11/03/19 Physical/Psych/Mental Status - Behavior General Behavior: Increased activity (restlessness, agitation) Eye Contact: Normal - Cooperativeness Cooperativeness: Cooperative - Thinking Thought Processes: Tight, Logical, Goal Directed - Physical Health Problems Is patient presently having any pain?: No Does patient presently have any injuries (include location): No Does patient currently have a fever: No Is patient : No CIWA Nausea/Vomitin-No Nausea/No Vomiting Muscle Tremors: 2 Anxiety: 3 Agitation: 2 Paroxysmal Sweats: 3 Orientation: 1-Uncertain about Date Tacttile Disturbances: 0-None Auditory Disturbances: 0-None Visual Disturbances: 4-Moderate Hallucinations Headache: 0-None Present CIWA-Ar Total Score: 15
[2019-11-03 12:28] VITALS: BMI 25.1
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
[2019-11-03] MEDS ORDERED: METHOCARBAMOL 500 MG TABLET PO PRN (12:42)
[2019-11-03] MEDS ORDERED: NICOTINE POLACRILEX 2 MG GUM BUC PRN (12:42)
[2019-11-03] MEDS ORDERED: BISMUTH SUBSALICYLATE 524 MG/30 ML UD PO PRN (12:42)
[2019-11-03] MEDS ORDERED: MAGNESIUM HYDROX 2400MG/30ML ORAL SUSPENSION 30 ML CUP PO PRN (12:42)
[2019-11-03] MEDS ORDERED: IBUPROFEN 400 MG TABLET (FP) PO PRN (12:42)
[2019-11-03] MEDS ORDERED: ONDANSETRON *ODT* 4 MG TABLET SL PRN (12:42)
[2019-11-03] MEDS ORDERED: ACETAMINOPHEN 325 MG TABLET (FP) PO PRN ×2 (12:42)
[2019-11-03] MEDS ORDERED: MAGNESIUM CITRATE 300 ML BOTTLE PO PRN (12:42)
[2019-11-03] MEDS ORDERED: MAG HYDROX/AL HYDROX/SIMETH 30 ML UNIT-DOSE CUP PO PRN (12:42)
[2019-11-03] MEDS ORDERED: chlordiazePOXIDE HCL 25 MG CAPSULE PO PRN (12:42)
[2019-11-03] MEDS ORDERED: MENTHOL/PHENOL 1 EACH UD MM PRN (12:42)
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
--- NOTE | 2019-11-03 13:23 | EKG ---
Test Reason : Blood Pressure : / mmHG Vent. Rate : 079 BPM Atrial Rate : 079 BPM P-R Int : 148 ms QRS Dur : 082 ms QT Int : 376 ms P-R-T Axes : 012 065 051 degrees QTc Int : 431 ms NORMAL SINUS RHYTHM WITH SINUS ARRHYTHMIA NORMAL ECG WHEN COMPARED WITH ECG OF 10-JAN-2018 19:14, NO SIGNIFICANT CHANGE WAS FOUND Confirmed by Marimar Saleh ([id number]) on 11/03/2019 1:23:25 PM Referred By: Confirmed By:Marimar Saleh
[2019-11-03] MEDS: ALBUTEROL SO4 HFA INHALER IH SCH ×3 (13:44→21:41)
[2019-11-03] MEDS: NICOTINE 21 MG/24 HOURS TOPICAL PATCH TD SCH (13:44)
[2019-11-03] MEDS: hydrOXYzine PAMOATE 25 MG CAPSULE (FP) PO SCH ×3 (13:44→22:26)
[2019-11-03] MEDS: levETIRAcetam 500 MG TABLET (FP) PO SCH ×2 (13:44→22:26)
[2019-11-03] MEDS ORDERED: TUBERCULIN PPD 5 TU/0.1ML VIAL ID ONE (13:46)
[2019-11-03 17:42] LABS: ALBUMIN 3.9 g/dl (3.4-5.0); BILIRUBIN,TOTAL 0.2 mg/dL (0.2-1); BLOOD UREA NITROGEN 13.4 mg/dL (7-18); CALCIUM 9.1 mg/dL (8.5-10.1); POTASSIUM 4.2 mmol/L (3.5-5.1); TOT PROT 7.3 g/dl (6.4-8.2)
[2019-11-03 17:48] LABS: HEMATOCRIT 45.5 % (35.4-49); HEMOGLOBIN 15.4 GM/dL (11.7-16.9); MCH 30.7 pg (25.7-33.7); MEAN CELL VOLUME 90.4 fl (80-96); PLATELET COUNT 201 K/MM3 (134-434); RBC 5.03 M/mm3 (4.00-5.60); RDW 13.5 % (11.9-15.9)
[2019-11-03] MEDS: chlordiazePOXIDE HCL 25 MG CAPSULE PO SCH ×2 (18:23→22:26)
[2019-11-03] MEDS ORDERED: ALBUTEROL SO4 HFA INHALER IH PRN (20:52)
[2019-11-03] MEDS: MELATONIN 5 MG TABLETS PO SCH (22:26)
[2019-11-03] MEDS: THIAMINE HCL 100 MG TABLET (FP) PO SCH (22:26)
[2019-11-04] MEDS: hydrOXYzine PAMOATE 25 MG CAPSULE (FP) PO SCH ×5 (06:06→22:26)
[2019-11-04] MEDS: chlordiazePOXIDE HCL 25 MG CAPSULE PO SCH ×4 (06:06→22:26)
[2019-11-04] MEDS ORDERED: METHADONE HCL 10 MG TABLET PO ONE (09:07)
[2019-11-04] MEDS ORDERED: METHADONE 80 MG, METHADONE 10 MG PO ONE (09:22)
--- NOTE | 2019-11-04 09:45 | PN ---
S CIWA - CIWA Score Nausea/Vomitin-No Nausea/No Vomiting Muscle Tremors: 4-Moderate,w/Arms Extend Anxiety: 4-Mod. Anxious/Guarded Agitation: 3 Paroxysmal Sweats: 1-Minimal Palms Moist Orientation: 0-Oriented Tacttile Disturbances: 0-None Auditory Disturbances: 0-None Visual Disturbances: 0-None Headache: 0-None Present CIWA-Ar Total Score: 12 BHS Progress Note (SOAP) Subjective: Pt is a 39 y/o male admitted to detox for alcohol withdrawal sx, Pt is on Librium taper protocol on Methadone 90 mg po daily with [facility]. c/oc/o sweats tremors lower back pain Objective: 11/04/19 09:44 Vital Signs - 24 hr 11/03/19 11/03/19 11/03/19 12:18 12:19 12:29 Temperature 98.2 F Pulse Rate 85 Respiratory 18 Rate Blood Pressure 101/63 O2 Sat by Pulse 95 95 Oximetry (%) 11/03/19 11/03/19 11/04/19 13:35 21:42 06:17 Temperature 97.3 F L 97.7 F 98.2 F Pulse Rate 72 79 77 Respiratory 16 16 18 Rate Blood Pressure 112/69 115/70 117/73 O2 Sat by Pulse 96 97 96 Oximetry (%) Laboratory Tests 11/03/19 11/03/19 11/03/19 12:00 12:00 12:00 WBC 10.0 RBC 5.03 Hgb 15.4 Hct 45.5 MCV 90.4 MCH 30.7 MCHC 34.0 RDW 13.5 Plt Count 201 MPV 10.0 Sodium 140 Potassium 4.2 Chloride 105 Carbon Dioxide 25 Anion Gap 10 BUN 13.4 Creatinine 1.0 Est GFR (CKD-EPI)AfAm 107.87 Est GFR (CKD-EPI)NonAf 93.07 Random Glucose 83 Calcium 9.1 Total Bilirubin 0.2 AST 32 ALT 26 Alkaline Phosphatase 75 Total Protein 7.3 Albumin 3.9 Syphilis Serology Non-reactive Alert o x 3 nad oob ambulating with steady gait Assessment: 11/04/19 20:05 withdrawal sx Plan: cont detox increase po fluids maintain safety Robaxin prn
[2019-11-04] MEDS ORDERED: METHADONE HCL 10 MG TABLET ONE (10:01)
[2019-11-04] MEDS ORDERED: METHADONE HCL 40 MG DISPERSABLE TABLET ONE (10:02)
[2019-11-04] MEDS: PRENATAL VITAMINS W/ FOLIC ACID TABLET (FP) PO SCH (10:15)
[2019-11-04] MEDS: levETIRAcetam 500 MG TABLET (FP) PO SCH ×2 (10:15→22:26)
[2019-11-04] MEDS: NICOTINE 21 MG/24 HOURS TOPICAL PATCH TD SCH (10:16)
[2019-11-04] MEDS: MELATONIN 5 MG TABLETS PO SCH (22:26)
[2019-11-04] MEDS: THIAMINE HCL 100 MG TABLET (FP) PO SCH (22:27)
[2019-11-05] MEDS ORDERED: METHADONE HCL 10 MG TABLET PO SCH (06:00)
[2019-11-05] MEDS: chlordiazePOXIDE HCL 25 MG CAPSULE PO SCH ×4 (06:07→22:08)
[2019-11-05] MEDS: hydrOXYzine PAMOATE 25 MG CAPSULE (FP) PO SCH ×5 (06:07→22:08)
[2019-11-05] MEDS ORDERED: METHADONE HCL 10 MG TABLET ONE (06:08)
[2019-11-05] MEDS ORDERED: METHADONE HCL 40 MG DISPERSABLE TABLET ONE (06:09)
[2019-11-05] MEDS: METHADONE 80 MG, METHADONE 10 MG PO SCH (06:12)
[2019-11-05] MEDS: levETIRAcetam 500 MG TABLET (FP) PO SCH ×2 (10:02→22:08)
[2019-11-05] MEDS: PRENATAL VITAMINS W/ FOLIC ACID TABLET (FP) PO SCH (10:02)
[2019-11-05] MEDS: NICOTINE 21 MG/24 HOURS TOPICAL PATCH TD SCH (10:03)
--- NOTE | 2019-11-05 12:37 | PN ---
S CIWA - CIWA Score Nausea/Vomitin-No Nausea/No Vomiting Muscle Tremors: 4-Moderate,w/Arms Extend Anxiety: 4-Mod. Anxious/Guarded Agitation: 2 Paroxysmal Sweats: No Perspiration Orientation: 0-Oriented Tacttile Disturbances: 0-None Auditory Disturbances: 0-None Visual Disturbances: 0-None Headache: 0-None Present CIWA-Ar Total Score: 10 BHS Progress Note (SOAP) Subjective: Pt seen in rounds oob sitting in TV room. Reports detox proceeding well with slight withdrawal sx. medication effective. slight anxiety slight tremors Objective: 11/05/19 12:39 Vital Signs - 24 hr 11/04/19 11/04/19 11/04/19 14:00 17:05 21:54 Temperature 98 F Pulse Rate 81 82 108 H Respiratory 18 16 16 Rate Blood Pressure 113/72 111/66 132/88 O2 Sat by Pulse 97 97 94 L Oximetry (%) 11/05/19 11/05/19 05:57 09:22 Temperature 97.7 F 97.3 F L Pulse Rate 72 89 Respiratory 16 18 Rate Blood Pressure 114/70 114/68 O2 Sat by Pulse 95 96 Oximetry (%) Laboratory Tests 11/03/19 11/03/19 11/03/19 12:00 12:00 12:00 WBC 10.0 RBC 5.03 Hgb 15.4 Hct 45.5 MCV 90.4 MCH 30.7 MCHC 34.0 RDW 13.5 Plt Count 201 MPV 10.0 Sodium 140 Potassium 4.2 Chloride 105 Carbon Dioxide 25 Anion Gap 10 BUN 13.4 Creatinine 1.0 Est GFR (CKD-EPI)AfAm 107.87 Est GFR (CKD-EPI)NonAf 93.07 Random Glucose 83 Calcium 9.1 Total Bilirubin 0.2 AST 32 ALT 26 Alkaline Phosphatase 75 Total Protein 7.3 Albumin 3.9 Syphilis Serology Non-reactive COVID-19 (SHAKIRA) 11/03/19 21:00 WBC RBC Hgb Hct MCV MCH MCHC RDW Plt Count MPV Sodium Potassium Chloride Carbon Dioxide Anion Gap BUN Creatinine Est GFR (CKD-EPI)AfAm Est GFR (CKD-EPI)NonAf Random Glucose Calcium Total Bilirubin AST ALT Alkaline Phosphatase Total Protein Albumin Syphilis Serology COVID-19 (SHAKIRA) Not detected covid-19 not detected alert o x 3 nad oob ambulating with steady gait Assessment: 11/05/19 12:39 withdrawal sx Plan: continue detox increase po fluids maintain safety
[2019-11-05 14:02] LABS: PH,URINE 6.5 (5.0-8.0); URINE APPEARANCE CLEAR; URINE BILIRUBIN NEGATIVE (NEGATIVE); URINE COLOR YELLOW; URINE GLUCOSE (UA) NEGATIVE (NEGATIVE); URINE KETONE NEGATIVE (NEGATIVE); URINE LEUK ESTERASE NEGATIVE (NEGATIVE); URINE NITRITE NEGATIVE (NEGATIVE); URINE PROTEIN NEGATIVE (NEGATIVE); URINE UROBILINOGEN 0.2 mg/dL (0.2-1.0)
[2019-11-05] MEDS: THIAMINE HCL 100 MG TABLET (FP) PO SCH (22:08)
[2019-11-05] MEDS: MELATONIN 5 MG TABLETS PO SCH (22:08)
[2019-11-06] MEDS ORDERED: chlordiazePOXIDE HCL 10 MG CAPSULE PO PRN
[2019-11-06] MEDS ORDERED: METHADONE HCL 10 MG TABLET ONE (04:04)
[2019-11-06] MEDS ORDERED: METHADONE HCL 40 MG DISPERSABLE TABLET ONE (04:06)
[2019-11-06] MEDS: chlordiazePOXIDE HCL 10 MG CAPSULE PO SCH ×4 (06:11→22:09)
[2019-11-06] MEDS: METHADONE 80 MG, METHADONE 10 MG PO SCH (06:11)
[2019-11-06] MEDS: hydrOXYzine PAMOATE 25 MG CAPSULE (FP) PO SCH ×5 (06:14→22:09)
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
[2019-11-06] MEDS: levETIRAcetam 500 MG TABLET (FP) PO SCH ×2 (11:03→22:09)
[2019-11-06] MEDS: PRENATAL VITAMINS W/ FOLIC ACID TABLET (FP) PO SCH (11:03)
[2019-11-06] MEDS: NICOTINE 21 MG/24 HOURS TOPICAL PATCH TD SCH (11:03)
--- NOTE | 2019-11-06 13:19 | PN ---
S CIWA - CIWA Score Nausea/Vomitin-No Nausea/No Vomiting Muscle Tremors: 1-None Visible, but [place] Anxiety: 3 Agitation: 2 Paroxysmal Sweats: 1-Minimal Palms Moist Orientation: 0-Oriented Tacttile Disturbances: 0-None Auditory Disturbances: 0-None Visual Disturbances: 0-None Headache: 0-None Present CIWA-Ar Total Score: 7 BHS Progress Note (SOAP) Subjective: Pt seen in day room at rounds watching TV. Slight anxiety otherwise states detox proceeding well with regimen. Objective: 11/06/19 13:17 Vital Signs - 24 hr 11/05/19 11/05/19 11/05/19 16:35 20:25 21:23 Temperature 97 F L 98.4 F Pulse Rate 88 89 Respiratory 16 18 Rate Blood Pressure 127/71 121/78 O2 Sat by Pulse 97 97 Oximetry (%) 11/06/19 11/06/19 06:01 06:24 Temperature 97.8 F Pulse Rate 80 88 Respiratory 18 20 Rate Blood Pressure 114/84 118/79 O2 Sat by Pulse 97 Oximetry (%) Laboratory Tests 11/03/19 11/03/19 11/03/19 12:00 12:00 12:00 WBC 10.0 RBC 5.03 Hgb 15.4 Hct 45.5 MCV 90.4 MCH 30.7 MCHC 34.0 RDW 13.5 Plt Count 201 MPV 10.0 Sodium 140 Potassium 4.2 Chloride 105 Carbon Dioxide 25 Anion Gap 10 BUN 13.4 Creatinine 1.0 Est GFR (CKD-EPI)AfAm 107.87 Est GFR (CKD-EPI)NonAf 93.07 Random Glucose 83 Calcium 9.1 Total Bilirubin 0.2 AST 32 ALT 26 Alkaline Phosphatase 75 Total Protein 7.3 Albumin 3.9 Urine Color Urine Appearance Urine pH Ur Specific [place] Urine Protein Urine Glucose (UA) Urine Ketones Urine Blood Urine Nitrite Urine Bilirubin Urine Urobilinogen Ur Leukocyte Esterase Syphilis Serology Non-reactive COVID-19 (SHAKIRA) 11/03/19 11/05/19 21:00 11:50 WBC RBC Hgb Hct MCV MCH MCHC RDW Plt Count MPV Sodium Potassium Chloride Carbon Dioxide Anion Gap BUN Creatinine Est GFR (CKD-EPI)AfAm Est GFR (CKD-EPI)NonAf Random Glucose Calcium Total Bilirubin AST ALT Alkaline Phosphatase Total Protein Albumin Urine Color Yellow Urine Appearance Clear Urine pH 6.5 Ur Specific [place] 1.012 Urine Protein Negative Urine Glucose (UA) Negative Urine Ketones Negative Urine Blood Negative Urine Nitrite Negative Urine Bilirubin Negative Urine Urobilinogen 0.2 Ur Leukocyte Esterase Negative Syphilis Serology COVID-19 (SHAKIRA) Not detected covid-19 not detected alert o x 3 nad oob with steady gait Assessment: 11/06/19 13:19 withdrawal sx Plan: cont detox increase po fluids maintain safety
[2019-11-06] MEDS: THIAMINE HCL 100 MG TABLET (FP) PO SCH (22:09)
[2019-11-06] MEDS: MELATONIN 5 MG TABLETS PO SCH (22:09)
[2019-11-07] MEDS ORDERED: METHADONE HCL 40 MG DISPERSABLE TABLET ONE (04:16)
[2019-11-07] MEDS ORDERED: METHADONE HCL 10 MG TABLET ONE (04:16)
[2019-11-07] MEDS ORDERED: chlordiazePOXIDE HCL 10 MG CAPSULE PO SCH (05:00)
[2019-11-07] MEDS: METHADONE 80 MG, METHADONE 10 MG PO SCH (06:02)
[2019-11-07] MEDS: hydrOXYzine PAMOATE 25 MG CAPSULE (FP) PO SCH ×2 (06:02→09:32)
[2019-11-07 07:05] VITALS: BP 121/77; PULSE 84; TEMP 97.3
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
[2019-11-07] MEDS: levETIRAcetam 500 MG TABLET (FP) PO SCH (09:32)
[2019-11-07] MEDS: PRENATAL VITAMINS W/ FOLIC ACID TABLET (FP) PO SCH (09:32)
[2019-11-07] MEDS: NICOTINE 21 MG/24 HOURS TOPICAL PATCH TD SCH (09:32)
[2019-11-08] MEDS ORDERED: chlordiazePOXIDE HCL 10 MG CAPSULE PO ONE (05:00)
== END 2019-11-07 09:20 | disposition home or self-care (01) | DRG 773 ==
LOC: YASAS 10:58 → Y5N DETOX 12:01
PROVIDERS: ADMIT Allergy & Immunology; ATTEND Allergy & Immunology
PROC: HZ2ZZZZ Detoxification Services for Substance Abuse Treatment (ICD-10-PCS; principal; 2019-11-03)
DX: F10.230 Alcohol dependence with withdrawal, uncomplicated (principal); F11.20 Opioid dependence, uncomplicated; F13.20 Sedative, hypnotic or anxiolytic dependence, uncomplicated; F12.20 Cannabis dependence, uncomplicated; F17.210 Nicotine dependence, cigarettes, uncomplicated; F31.9 Bipolar disorder, unspecified; F19.282 Other psychoactive substance dependence with psychoactive substance-induced sleep disorder; F41.9 Anxiety disorder, unspecified; F43.10 Post-traumatic stress disorder, unspecified; R56.1 Post traumatic seizures; M54.5 Low back pain; Z91.410 Personal history of adult physical and sexual abuse; Z98.890 Other specified postprocedural states; Z88.0 Allergy status to penicillin; Z91.018 Allergy to other foods; Z56.0 Unemployment, unspecified; Z59.0 Homelessness
CPT/HCPCS: 36415; 80053; 80177; 81003; 85027; 86780; 93005; 93010; U0003

== ENCOUNTER 2020-03-03 11:49 | Inpatient (IN) | payer OTHER ==
[2020-03-03 15:36] VITALS: BMI 25.1
[2020-03-03] MEDS ORDERED: NICOTINE POLACRILEX 2 MG GUM BUC PRN (15:36)
[2020-03-03] MEDS ORDERED: MENTHOL/PHENOL 1 EACH UD MM PRN (15:36)
[2020-03-03] MEDS ORDERED: ACETAMINOPHEN 325 MG TABLET (FP) PO PRN ×2 (15:36)
[2020-03-03] MEDS ORDERED: chlordiazePOXIDE HCL 25 MG CAPSULE PO PRN (15:36)
[2020-03-03] MEDS ORDERED: MAGNESIUM CITRATE 300 ML BOTTLE PO PRN (15:36)
[2020-03-03] MEDS ORDERED: ONDANSETRON *ODT* 4 MG TABLET SL PRN (15:36)
[2020-03-03] MEDS ORDERED: MAG HYDROX/AL HYDROX/SIMETH 30 ML UNIT-DOSE CUP PO PRN (15:36)
[2020-03-03] MEDS ORDERED: MAGNESIUM HYDROX 2400MG/30ML ORAL SUSPENSION 30 ML CUP PO PRN (15:36)
[2020-03-03] MEDS ORDERED: BISMUTH SUBSALICYLATE 262 MG/15 ML BTL PO PRN (15:36)
[2020-03-03] MEDS ORDERED: IBUPROFEN 400 MG TABLET (FP) PO PRN (15:36)
[2020-03-03] MEDS: NICOTINE 21 MG/24 HOURS TOPICAL PATCH TD SCH (16:37)
[2020-03-03] MEDS: PRENATAL VITAMINS W/ FOLIC ACID TABLET (FP) PO SCH (16:38)
[2020-03-03] MEDS: chlordiazePOXIDE HCL 25 MG CAPSULE PO SCH ×2 (16:38→22:26)
[2020-03-03 17:37] LABS: POTASSIUM 4.2 mmol/L (3.5-5.1)
[2020-03-03 17:38] LABS: HEMATOCRIT 41.2 % (35.4-49); HEMOGLOBIN 13.7 GM/dL (11.7-16.9); MCH 29.9 pg (25.7-33.7); MCHC 33.3 g/dl (32.0-35.9); MEAN CELL VOLUME 89.9 fl (80-96); MEAN PLT VOLUME 9.4 fl (7.5-11.1); PLATELET COUNT 214 K/MM3 (134-434); RBC 4.58 M/mm3 (4.00-5.60); RDW 13.9 % (11.9-15.9); WHITE BLOOD COUNT 11.1 K/mm3 (4.0-10.0)
[2020-03-03 17:39] LABS: ALBUMIN 3.4 g/dl (3.4-5.0); CALCIUM 8.6 mg/dL (8.5-10.1)
[2020-03-03 17:40] LABS: BLOOD UREA NITROGEN 8.3 mg/dL (7-18)
[2020-03-03 17:44] LABS: BILIRUBIN,TOTAL 0.2 mg/dL (0.2-1); TOT PROT 6.3 g/dl (6.4-8.2)
[2020-03-03] MEDS: hydrOXYzine PAMOATE 25 MG CAPSULE (FP) PO SCH ×2 (18:25→22:26)
[2020-03-03] MEDS: levETIRAcetam 500 MG TABLET (FP) PO SCH (22:26)
[2020-03-03] MEDS: THIAMINE HCL 100 MG TABLET (FP) PO SCH (22:26)
[2020-03-03] MEDS: MELATONIN 5 MG TABLETS PO SCH (22:26)
[2020-03-04] MEDS: chlordiazePOXIDE HCL 25 MG CAPSULE PO SCH ×4 (06:21→22:23)
[2020-03-04] MEDS: hydrOXYzine PAMOATE 25 MG CAPSULE (FP) PO SCH (06:22)
[2020-03-04] MEDS ORDERED: METHADONE HCL 10 MG TABLET PO ONE (08:49)
[2020-03-04] MEDS ORDERED: METHADONE 80 MG, METHADONE 20 MG PO ONE (09:00)
[2020-03-04] MEDS ORDERED: METHADONE HCL 40 MG DISPERSABLE TABLET ONE (09:12)
[2020-03-04] MEDS ORDERED: METHADONE HCL 10 MG TABLET ONE (09:12)
[2020-03-04] MEDS: NICOTINE 21 MG/24 HOURS TOPICAL PATCH TD SCH (10:39)
[2020-03-04] MEDS: levETIRAcetam 500 MG TABLET (FP) PO SCH ×2 (10:39→22:23)
[2020-03-04] MEDS: PRENATAL VITAMINS W/ FOLIC ACID TABLET (FP) PO SCH (10:39)
[2020-03-04] MEDS: BACITRACIN 0.9 GM PACKET TP SCH ×2 (10:42→22:23)
[2020-03-04 11:07] LABS: HIV INTERPRETATION NEGATIVE (NEGATIVE)
[2020-03-04] MEDS: MELATONIN 5 MG TABLETS PO SCH (22:23)
[2020-03-04] MEDS: THIAMINE HCL 100 MG TABLET (FP) PO SCH (22:23)
[2020-03-05] MEDS ORDERED: METHADONE HCL 10 MG TABLET ONE (05:36)
[2020-03-05] MEDS ORDERED: METHADONE HCL 40 MG DISPERSABLE TABLET ONE (05:37)
[2020-03-05] MEDS: METHADONE 80 MG, METHADONE 20 MG PO SCH (05:37)
[2020-03-05] MEDS: chlordiazePOXIDE HCL 25 MG CAPSULE PO SCH ×4 (05:40→22:13)
[2020-03-05] MEDS ORDERED: METHADONE HCL 40 MG DISPERSABLE TABLET PO SCH (06:00)
[2020-03-05] MEDS: BACITRACIN 0.9 GM PACKET TP SCH ×2 (10:02→22:13)
[2020-03-05] MEDS: levETIRAcetam 500 MG TABLET (FP) PO SCH ×2 (10:02→22:13)
[2020-03-05] MEDS: hydrOXYzine PAMOATE 25 MG CAPSULE (FP) PO PRN ×2 (10:02→15:27)
[2020-03-05] MEDS: NICOTINE 21 MG/24 HOURS TOPICAL PATCH TD SCH (10:06)
[2020-03-05] MEDS: PRENATAL VITAMINS W/ FOLIC ACID TABLET (FP) PO SCH (10:06)
[2020-03-05] MEDS: METHOCARBAMOL 500 MG TABLET PO PRN (15:27)
[2020-03-05] MEDS: THIAMINE HCL 100 MG TABLET (FP) PO SCH (22:13)
[2020-03-05] MEDS: MELATONIN 5 MG TABLETS PO SCH (22:13)
[2020-03-06] MEDS ORDERED: chlordiazePOXIDE HCL 10 MG CAPSULE PO PRN
[2020-03-06] MEDS ORDERED: METHADONE HCL 10 MG TABLET ONE (04:50)
[2020-03-06] MEDS ORDERED: METHADONE HCL 40 MG DISPERSABLE TABLET ONE (04:51)
[2020-03-06] MEDS: chlordiazePOXIDE HCL 10 MG CAPSULE PO SCH ×4 (05:19→22:32)
[2020-03-06] MEDS: METHADONE 80 MG, METHADONE 20 MG PO SCH (05:20)
[2020-03-06] MEDS: BACITRACIN 0.9 GM PACKET TP SCH ×2 (10:38→22:31)
[2020-03-06] MEDS: levETIRAcetam 500 MG TABLET (FP) PO SCH ×2 (10:39→22:32)
[2020-03-06] MEDS: hydrOXYzine PAMOATE 25 MG CAPSULE (FP) PO PRN ×2 (10:39→14:33)
[2020-03-06] MEDS: NICOTINE 21 MG/24 HOURS TOPICAL PATCH TD SCH (11:02)
[2020-03-06] MEDS: PRENATAL VITAMINS W/ FOLIC ACID TABLET (FP) PO SCH (11:03)
[2020-03-06] MEDS: METHOCARBAMOL 500 MG TABLET PO PRN (14:33)
[2020-03-06] MEDS: MELATONIN 5 MG TABLETS PO SCH (22:32)
[2020-03-06] MEDS: THIAMINE HCL 100 MG TABLET (FP) PO SCH (22:33)
[2020-03-07] MEDS ORDERED: METHADONE HCL 10 MG TABLET ONE (04:27)
[2020-03-07] MEDS ORDERED: METHADONE HCL 40 MG DISPERSABLE TABLET ONE (04:28)
[2020-03-07] MEDS ORDERED: chlordiazePOXIDE HCL 10 MG CAPSULE PO SCH (05:00)
[2020-03-07] MEDS: METHADONE 80 MG, METHADONE 20 MG PO SCH (06:11)
[2020-03-07] MEDS: levETIRAcetam 500 MG TABLET (FP) PO SCH (10:05)
[2020-03-07] MEDS: PRENATAL VITAMINS W/ FOLIC ACID TABLET (FP) PO SCH (10:07)
[2020-03-07] MEDS: NICOTINE 21 MG/24 HOURS TOPICAL PATCH TD SCH (10:07)
[2020-03-07] MEDS: BACITRACIN 0.9 GM PACKET TP SCH (10:09)
[2020-03-07 12:52] VITALS: BP 124/73; PULSE 93; TEMP 98.7
[2020-03-08] MEDS ORDERED: chlordiazePOXIDE HCL 10 MG CAPSULE PO ONE (05:00)
== END 2020-03-07 16:33 | disposition left against medical advice (07) | DRG 770 ==
LOC: YASAS 11:49 → Y6N 15:37
PROVIDERS: ADMIT Allergy & Immunology; ATTEND Allergy & Immunology
PROC: HZ2ZZZZ Detoxification Services for Substance Abuse Treatment (ICD-10-PCS; principal; 2020-03-03)
DX: F10.230 Alcohol dependence with withdrawal, uncomplicated (principal); F11.20 Opioid dependence, uncomplicated; F13.20 Sedative, hypnotic or anxiolytic dependence, uncomplicated; F12.20 Cannabis dependence, uncomplicated; F17.213 Nicotine dependence, cigarettes, with withdrawal; F19.280 Other psychoactive substance dependence with psychoactive substance-induced anxiety disorder; F19.282 Other psychoactive substance dependence with psychoactive substance-induced sleep disorder; F43.10 Post-traumatic stress disorder, unspecified; G40.909 Epilepsy, unspecified, not intractable, without status epilepticus; S00.81XA Abrasion of other part of head, initial encounter; W19.XXXA Unspecified fall, initial encounter; Y93.89 Activity, other specified; Y92.85 Railroad track as the place of occurrence of the external cause; Y99.8 Other external cause status; Z56.0 Unemployment, unspecified; Z59.0 Homelessness; Z88.0 Allergy status to penicillin; Z91.013 Allergy to seafood
CPT/HCPCS: 36415; 80053; 85027; 86780; 87389; C9803; U0003

== ENCOUNTER 2021-09-22 12:10 | Inpatient (IN) | payer OTHER ==
[2021-09-22 12:54] VITALS: BMI 24.3
[2021-09-22] MEDS ORDERED: chlordiazePOXIDE HCL 25 MG CAPSULE PO PRN (13:23)
[2021-09-22] MEDS ORDERED: BISMUTH SUBSALICYLATE 524 MG/30 ML PO PRN (13:23)
[2021-09-22] MEDS ORDERED: BENZOCAINE/MENTHOL (CHLORASEPTIC ) LOZENGE MM PRN (13:23)
[2021-09-22] MEDS ORDERED: MAGNESIUM HYDROX 2400MG/30ML ORAL SUSPENSION 30 ML CUP PO PRN (13:23)
[2021-09-22] MEDS ORDERED: MAG HYDROX/AL HYDROX/SIMETH 30 ML UNIT-DOSE CUP PO PRN (13:23)
[2021-09-22] MEDS ORDERED: LOPERAMIDE HCL 2 MG CAPSULE PO PRN (13:23)
[2021-09-22] MEDS ORDERED: IBUPROFEN 400 MG TABLET (FP) PO PRN (13:23)
[2021-09-22] MEDS ORDERED: ACETAMINOPHEN 325 MG TABLET (FP) PO PRN ×2 (13:23)
[2021-09-22] MEDS ORDERED: MAGNESIUM CITRATE 300 ML BOTTLE PO PRN (13:23)
[2021-09-22] MEDS ORDERED: ONDANSETRON *ODT* 4 MG TABLET SL PRN (13:23)
[2021-09-22] MEDS ORDERED: NICOTINE 10 MG CARTRIDGE (INHALER) IH PRN (13:23)
[2021-09-22] MEDS ORDERED: IBUPROFEN 600 MG TABLET (FP) PO PRN (13:23)
[2021-09-22] MEDS ORDERED: DICYCLOMINE HCL 10 MG CAPSULE PO PRN (13:23)
[2021-09-22] MEDS: hydrOXYzine PAMOATE 25 MG CAPSULE (FP) PO SCH ×3 (15:46→22:39)
[2021-09-22] MEDS: chlordiazePOXIDE HCL 25 MG CAPSULE PO SCH ×2 (18:05→22:39)
[2021-09-22] MEDS: METHOCARBAMOL 500 MG TABLET PO PRN (22:39)
[2021-09-22] MEDS: THIAMINE HCL 100 MG TABLET (FP) PO SCH (22:39)
[2021-09-22] MEDS: MELATONIN 5 MG TABLETS PO SCH (22:39)
[2021-09-23] MEDS: chlordiazePOXIDE HCL 25 MG CAPSULE PO SCH ×4 (05:36→22:09)
[2021-09-23] MEDS: hydrOXYzine PAMOATE 25 MG CAPSULE (FP) PO SCH ×5 (05:37→22:08)
[2021-09-23] MEDS ORDERED: COLLOIDAL OATMEAL 1 BAR EACH TP PRN (08:20)
[2021-09-23] MEDS ORDERED: methaDONE HCL 40 MG DISPERSABLE TABLET PO ONE (09:00)
[2021-09-23] MEDS: PRENATAL VITAMINS W/ FOLIC ACID TABLET (FP) PO SCH (10:07)
[2021-09-23] MEDS: METHOCARBAMOL 500 MG TABLET PO PRN (10:10)
[2021-09-23 11:37] LABS: HEMATOCRIT 39.7 % (35.4-49); HEMOGLOBIN 13.9 GM/dL (11.7-16.9); MCH 33.5 pg (25.7-33.7); MEAN CELL VOLUME 95.9 fl (80-96); MEAN PLT VOLUME 9.7 fl (7.5-11.1); PLATELET COUNT 167 10^3/uL (134-434); RBC 4.15 M/mm3 (4.00-5.60); RDW 13.9 % (11.9-15.9); WHITE BLOOD COUNT 5.2 K/mm3 (4.0-10.0)
[2021-09-23 11:58] LABS: CALCIUM 8.6 mg/dL (8.5-10.1)
[2021-09-23 11:59] LABS: ALBUMIN 3.4 g/dl (3.4-5.0); BLOOD UREA NITROGEN 11.9 mg/dL (7-18)
[2021-09-23 12:01] LABS: CREATININE 0.9 mg/dL (0.55-1.3)
[2021-09-23 12:04] LABS: BILIRUBIN,TOTAL 0.6 mg/dL (0.2-1); TOT PROT 6.9 g/dl (6.4-8.2)
[2021-09-23] MEDS: THIAMINE HCL 100 MG TABLET (FP) PO SCH (22:08)
[2021-09-23] MEDS: MELATONIN 5 MG TABLETS PO SCH (22:09)
[2021-09-24] MEDS: hydrOXYzine PAMOATE 25 MG CAPSULE (FP) PO SCH ×5 (05:20→22:38)
[2021-09-24] MEDS: chlordiazePOXIDE HCL 25 MG CAPSULE PO SCH ×4 (05:20→22:38)
[2021-09-24] MEDS: methaDONE HCL 40 MG DISPERSABLE TABLET PO SCH (05:20)
[2021-09-24] MEDS: PRENATAL VITAMINS W/ FOLIC ACID TABLET (FP) PO SCH (10:23)
[2021-09-24] MEDS: MELATONIN 5 MG TABLETS PO SCH (22:38)
[2021-09-24] MEDS: THIAMINE HCL 100 MG TABLET (FP) PO SCH (22:38)
[2021-09-25] MEDS ORDERED: chlordiazePOXIDE HCL 10 MG CAPSULE PO PRN
[2021-09-25] MEDS: hydrOXYzine PAMOATE 25 MG CAPSULE (FP) PO SCH ×5 (05:06→23:09)
[2021-09-25] MEDS: chlordiazePOXIDE HCL 10 MG CAPSULE PO SCH ×4 (05:06→23:09)
[2021-09-25] MEDS: methaDONE HCL 40 MG DISPERSABLE TABLET PO SCH (05:06)
[2021-09-25] MEDS: PRENATAL VITAMINS W/ FOLIC ACID TABLET (FP) PO SCH (10:22)
[2021-09-25 14:23] VITALS: TEMP 98.6
[2021-09-25] MEDS: CLOTRIMAZOLE 1% CREAM TP SCH (15:16)
[2021-09-25] MEDS: THIAMINE HCL 100 MG TABLET (FP) PO SCH (23:08)
[2021-09-26] MEDS: CLOTRIMAZOLE 1% CREAM TP SCH (00:34)
[2021-09-26] MEDS: MELATONIN 5 MG TABLETS PO SCH (00:34)
[2021-09-26] MEDS ORDERED: chlordiazePOXIDE HCL 10 MG CAPSULE PO SCH (05:00)
[2021-09-26] MEDS: methaDONE HCL 40 MG DISPERSABLE TABLET PO SCH (05:11)
[2021-09-26] MEDS: hydrOXYzine PAMOATE 25 MG CAPSULE (FP) PO SCH (05:13)
[2021-09-26 06:38] VITALS: BP 111/65; PULSE 84
[2021-09-27] MEDS ORDERED: chlordiazePOXIDE HCL 10 MG CAPSULE PO ONE (05:00)
== END 2021-09-26 08:41 | disposition home or self-care (01) | DRG 773 ==
LOC: YASAS 12:10 → Y6N 14:21
PROVIDERS: ADMIT Allergy & Immunology; ATTEND Surgery
PROC: HZ2ZZZZ Detoxification Services for Substance Abuse Treatment (ICD-10-PCS; principal; 2021-09-22)
DX: F10.230 Alcohol dependence with withdrawal, uncomplicated (principal); F13.230 Sedative, hypnotic or anxiolytic dependence with withdrawal, uncomplicated; F11.20 Opioid dependence, uncomplicated; F14.20 Cocaine dependence, uncomplicated; F12.20 Cannabis dependence, uncomplicated; F17.210 Nicotine dependence, cigarettes, uncomplicated; F19.282 Other psychoactive substance dependence with psychoactive substance-induced sleep disorder; F19.280 Other psychoactive substance dependence with psychoactive substance-induced anxiety disorder; F19.24 Other psychoactive substance dependence with psychoactive substance-induced mood disorder; F41.9 Anxiety disorder, unspecified; F32.A Depression, unspecified; F43.10 Post-traumatic stress disorder, unspecified; Z88.0 Allergy status to penicillin
CPT/HCPCS: 36415; 80053; 85027; 86780; 87086; C9803-CS; Q0162; U0003; U0005

== ENCOUNTER 2022-09-19 10:49 | Inpatient (IN) | payer OTHER ==
[2022-09-19 11:39] VITALS: BMI 24.3
[2022-09-19] MEDS ORDERED: DICYCLOMINE HCL 10 MG CAPSULE PO PRN (11:51)
[2022-09-19] MEDS ORDERED: LORazepam 1 MG TABLET PO PRN (11:51)
[2022-09-19] MEDS ORDERED: BISMUTH SUBSALICYLATE 262 MG/15 ML BTL PO PRN (11:51)
[2022-09-19] MEDS ORDERED: NALOXONE HCL 0.4 MG/ML VIAL IM PRN (11:51)
[2022-09-19] MEDS ORDERED: IBUPROFEN 600 MG TABLET (FP) PO PRN (11:51)
[2022-09-19] MEDS ORDERED: guaiFENesin 600 MG TABLET.ER (FP) PO PRN (11:51)
[2022-09-19] MEDS ORDERED: NICOTINE 10 MG CARTRIDGE (INHALER) IH PRN (11:51)
[2022-09-19] MEDS ORDERED: NALOXONE HCL (KLOXXADO) 8 MG SPRAY NS PRN (11:51)
[2022-09-19] MEDS ORDERED: BENZONATATE 200 MG CAPSULE PO PRN (11:51)
[2022-09-19] MEDS ORDERED: LORazepam 2 MG TABLET PO ONE (11:51)
[2022-09-19] MEDS ORDERED: MAG HYDROX/AL HYDROX/SIMETH 30 ML UNIT-DOSE CUP PO PRN (11:51)
[2022-09-19] MEDS ORDERED: POLYETHYLENE GLYCOL (HEALTHYLAX) 3350 17 GM PACKET PO PRN (11:51)
[2022-09-19] MEDS ORDERED: ACETAMINOPHEN 325 MG TABLET (FP) PO PRN (11:51)
[2022-09-19] MEDS ORDERED: BENZOCAINE/MENTHOL (CHLORASEPTIC ) LOZENGE MM PRN (11:51)
[2022-09-19] MEDS ORDERED: LOPERAMIDE HCL 2 MG CAPSULE PO PRN (11:51)
[2022-09-19] MEDS ORDERED: MAGNESIUM HYDROX 2400MG/30ML ORAL SUSPENSION 30 ML CUP PO PRN (11:51)
[2022-09-19] MEDS ORDERED: ONDANSETRON *ODT* 4 MG TABLET SL PRN (11:51)
[2022-09-19] MEDS ORDERED: IBUPROFEN 400 MG TABLET (FP) PO PRN (11:51)
[2022-09-19] MEDS: PRENATAL VITAMINS W/ FOLIC ACID TABLET (FP) PO SCH (13:25)
[2022-09-19] MEDS: NICOTINE 14 MG/24 HOURS TOPICAL PATCH TD SCH (13:25)
[2022-09-19] MEDS ORDERED: PRENATAL VITAMINS W/ FOLIC ACID TABLET (FP) PO ONE (13:29)
[2022-09-19] MEDS ORDERED: ONDANSETRON *ODT* 4 MG TABLET ONE (13:29)
[2022-09-19] MEDS ORDERED: LORazepam 2 MG TABLET ONE (13:29)
[2022-09-19] MEDS ORDERED: NICOTINE 14 MG/24 HOURS TOPICAL PATCH TD ONE (13:29)
[2022-09-19 16:52] LABS: POTASSIUM 4.3 mmol/L (3.5-5.1)
[2022-09-19 16:54] LABS: HEMATOCRIT 42.1 % (35.4-49); HEMOGLOBIN 14.2 GM/dL (11.7-16.9); MCH 29.6 pg (25.7-33.7); MCHC 33.8 g/dl (32.0-35.9); MEAN CELL VOLUME 87.6 fl (80-96); MEAN PLT VOLUME 9.4 fl (7.5-11.1); PLATELET COUNT 233 10^3/uL (134-434); RBC 4.81 M/mm3 (4.00-5.60); RDW 13.5 % (11.9-15.9); WHITE BLOOD COUNT 10.4 K/mm3 (4.0-10.0)
[2022-09-19 16:55] LABS: BLOOD UREA NITROGEN 7.9 mg/dL (7-18)
[2022-09-19 16:56] LABS: ALBUMIN 3.4 g/dl (3.4-5.0)
[2022-09-19 16:58] LABS: CREATININE 0.8 mg/dL (0.55-1.3)
[2022-09-19 17:00] LABS: TOT PROT 6.5 g/dl (6.4-8.2)
[2022-09-19 17:03] LABS: BILIRUBIN,TOTAL 0.8 mg/dL (0.2-1)
[2022-09-19] MEDS: LORazepam 2 MG TABLET PO SCH ×2 (17:36→22:42)
[2022-09-19] MEDS: THIAMINE HCL 100 MG TABLET (FP) PO SCH (22:42)
[2022-09-19] MEDS: MELATONIN 5 MG TABLETS PO SCH (22:42)
[2022-09-20] MEDS: LORazepam 2 MG TABLET PO SCH ×4 (05:36→22:06)
[2022-09-20] MEDS ORDERED: methaDONE HCL 10 MG TABLET PO SCH (06:00)
[2022-09-20] MEDS: PRENATAL VITAMINS W/ FOLIC ACID TABLET (FP) PO SCH (10:16)
[2022-09-20] MEDS: METHOCARBAMOL 500 MG TABLET PO PRN (10:17)
[2022-09-20] MEDS: hydrOXYzine PAMOATE 25 MG CAPSULE (FP) PO PRN (10:17)
[2022-09-20] MEDS: NICOTINE 14 MG/24 HOURS TOPICAL PATCH TD SCH (10:19)
[2022-09-20] MEDS: THIAMINE HCL 100 MG TABLET (FP) PO SCH (22:06)
[2022-09-20] MEDS: MELATONIN 5 MG TABLETS PO SCH (22:07)
[2022-09-21] MEDS: LORazepam 1 MG TABLET PO SCH ×4 (05:32→22:27)
[2022-09-21] MEDS: METHOCARBAMOL 500 MG TABLET PO PRN ×2 (10:36→17:07)
[2022-09-21] MEDS: PRENATAL VITAMINS W/ FOLIC ACID TABLET (FP) PO SCH (10:36)
[2022-09-21] MEDS: hydrOXYzine PAMOATE 25 MG CAPSULE (FP) PO PRN (10:36)
[2022-09-21] MEDS: NICOTINE 14 MG/24 HOURS TOPICAL PATCH TD SCH (10:38)
[2022-09-21 11:56] LABS: HEMATOCRIT 45.8 % (35.4-49); MCH 29.6 pg (25.7-33.7); MCHC 32.9 g/dl (32.0-35.9); MEAN CELL VOLUME 90.1 fl (80-96); MEAN PLT VOLUME 10.4 fl (7.5-11.1); PLATELET COUNT 245 10^3/uL (134-434); RBC 5.08 M/mm3 (4.00-5.60); RDW 13.8 % (11.9-15.9); WHITE BLOOD COUNT 9.8 K/mm3 (4.0-10.0)
[2022-09-21 13:07] LABS: HIV INTERPRETATION NEGATIVE (NEGATIVE)
[2022-09-21] MEDS ORDERED: DOXYCYCLINE HYCLATE 100 MG TABLET PO SCH (18:00)
[2022-09-21] MEDS: MELATONIN 5 MG TABLETS PO SCH (22:27)
[2022-09-21] MEDS: THIAMINE HCL 100 MG TABLET (FP) PO SCH (22:27)
[2022-09-22] MEDS ORDERED: LORazepam 0.5 MG TABLET PO PRN
[2022-09-22] MEDS ORDERED: LORazepam 0.5 MG TABLET PO SCH (05:00)
[2022-09-22 06:35] VITALS: BP 107/80; PULSE 75; RESP 18; TEMP 97.5
[2022-09-23] MEDS ORDERED: LORazepam 0.5 MG TABLET PO ONE (05:00)
== END 2022-09-22 09:16 | disposition home or self-care (01) | DRG 773 ==
LOC: YASAS 10:49 → Y6N 12:41
PROVIDERS: ADMIT Allergy & Immunology; ATTEND Surgery
PROC: HZ2ZZZZ Detoxification Services for Substance Abuse Treatment (ICD-10-PCS; principal; 2022-09-19)
DX: F10.230 Alcohol dependence with withdrawal, uncomplicated (principal); F11.20 Opioid dependence, uncomplicated; F13.20 Sedative, hypnotic or anxiolytic dependence, uncomplicated; F14.20 Cocaine dependence, uncomplicated; F12.20 Cannabis dependence, uncomplicated; F17.210 Nicotine dependence, cigarettes, uncomplicated; F43.10 Post-traumatic stress disorder, unspecified; R56.1 Post traumatic seizures; N48.1 Balanitis
CPT/HCPCS: 36415; 80053; 82140; 82962; 85027; 86780; 87389; 87635; Q0162

== ENCOUNTER 2022-10-17 09:43 | Inpatient (IN) | payer OTHER ==
[2022-10-17 10:04] VITALS: BMI 23.6
[2022-10-17] MEDS ORDERED: IBUPROFEN 600 MG TABLET (FP) PO PRN (11:06)
[2022-10-17] MEDS ORDERED: NALOXONE HCL 0.4 MG/ML VIAL IM PRN (11:06)
[2022-10-17] MEDS ORDERED: IBUPROFEN 400 MG TABLET (FP) PO PRN (11:06)
[2022-10-17] MEDS ORDERED: LOPERAMIDE HCL 2 MG CAPSULE PO PRN (11:06)
[2022-10-17] MEDS ORDERED: BENZONATATE 200 MG CAPSULE PO PRN (11:06)
[2022-10-17] MEDS ORDERED: ONDANSETRON *ODT* 4 MG TABLET SL PRN (11:06)
[2022-10-17] MEDS ORDERED: guaiFENesin 600 MG TABLET.ER (FP) PO PRN (11:06)
[2022-10-17] MEDS ORDERED: MAG HYDROX/AL HYDROX/SIMETH 30 ML UNIT-DOSE CUP PO PRN (11:06)
[2022-10-17] MEDS ORDERED: DICYCLOMINE HCL 10 MG CAPSULE PO PRN (11:06)
[2022-10-17] MEDS ORDERED: ACETAMINOPHEN 325 MG TABLET (FP) PO PRN (11:06)
[2022-10-17] MEDS ORDERED: BISMUTH SUBSALICYLATE 524 MG/30 ML PO PRN (11:06)
[2022-10-17] MEDS ORDERED: MAGNESIUM HYDROX 2400MG/30ML ORAL SUSPENSION 30 ML CUP PO PRN (11:06)
[2022-10-17] MEDS ORDERED: NICOTINE POLACRILEX 2 MG GUM BUC PRN (11:06)
[2022-10-17] MEDS ORDERED: BENZOCAINE/MENTHOL (CHLORASEPTIC ) LOZENGE MM PRN (11:06)
[2022-10-17] MEDS ORDERED: POLYETHYLENE GLYCOL (HEALTHYLAX) 3350 17 GM PACKET PO PRN (11:06)
[2022-10-17] MEDS ORDERED: NALOXONE HCL (KLOXXADO) 8 MG SPRAY NS PRN (11:06)
[2022-10-17] MEDS ORDERED: diazePAM 5 MG TABLET PO PRN (11:11)
[2022-10-17] MEDS ORDERED: diazePAM 5 MG TABLET ONE (11:34)
[2022-10-17] MEDS: diazePAM 5 MG TABLET PO SCH ×3 (11:36→22:55)
[2022-10-17] MEDS: MELATONIN 5 MG TABLETS PO SCH (22:16)
[2022-10-17] MEDS: THIAMINE HCL 100 MG TABLET (FP) PO SCH (22:16)
[2022-10-17] MEDS: METHOCARBAMOL 500 MG TABLET PO PRN (22:16)
[2022-10-18] MEDS: diazePAM 5 MG TABLET PO SCH ×4 (05:21→23:10)
[2022-10-18] MEDS ORDERED: methaDONE HCL 10 MG TABLET PO SCH (07:20)
[2022-10-18] MEDS: METHOCARBAMOL 500 MG TABLET PO PRN (10:08)
[2022-10-18] MEDS: levETIRAcetam 500 MG TABLET (FP) PO SCH ×2 (10:08→22:16)
[2022-10-18] MEDS: NICOTINE 14 MG/24 HOURS TOPICAL PATCH TD SCH ×2 (10:08→10:58)
[2022-10-18] MEDS: PRENATAL VITAMINS W/ FOLIC ACID TABLET (FP) PO SCH (10:08)
[2022-10-18 11:34] LABS: HEMATOCRIT 44.1 % (35.4-49); HEMOGLOBIN 14.8 GM/dL (11.7-16.9); MCH 29.4 pg (25.7-33.7); MCHC 33.6 g/dl (32.0-35.9); MEAN CELL VOLUME 87.7 fl (80-96); MEAN PLT VOLUME 9.7 fl (7.5-11.1); PLATELET COUNT 211 10^3/uL (134-434); RBC 5.03 M/mm3 (4.00-5.60); RDW 14.3 % (11.9-15.9); WHITE BLOOD COUNT 6.9 K/mm3 (4.0-10.0)
[2022-10-18 11:47] LABS: POTASSIUM 5.4 mmol/L (3.5-5.1)
[2022-10-18 11:56] LABS: ALBUMIN 3.3 g/dl (3.4-5.0)
[2022-10-18 11:57] LABS: CALCIUM 9.8 mg/dL (8.5-10.1)
[2022-10-18 11:59] LABS: CREATININE 0.9 mg/dL (0.55-1.3)
[2022-10-18 12:01] LABS: BILIRUBIN,TOTAL 0.2 mg/dL (0.2-1); TOT PROT 6.5 g/dl (6.4-8.2)
[2022-10-18] MEDS: DOXYCYCLINE HYCLATE 100 MG TABLET PO SCH (17:32)
[2022-10-18] MEDS: THIAMINE HCL 100 MG TABLET (FP) PO SCH (22:16)
[2022-10-18] MEDS: MELATONIN 5 MG TABLETS PO SCH (22:16)
[2022-10-18] MEDS: HYDROCORTISONE 1% TOPICAL CREAM 30 GM TUBE TP SCH (22:17)
[2022-10-19] MEDS: diazePAM 5 MG TABLET PO SCH ×3 (05:12→22:02)
[2022-10-19] MEDS: DOXYCYCLINE HYCLATE 100 MG TABLET PO SCH ×2 (07:14→17:07)
[2022-10-19] MEDS: HYDROCORTISONE 1% TOPICAL CREAM 30 GM TUBE TP SCH ×2 (10:05→22:03)
[2022-10-19] MEDS: levETIRAcetam 500 MG TABLET (FP) PO SCH ×2 (10:05→22:03)
[2022-10-19] MEDS: PRENATAL VITAMINS W/ FOLIC ACID TABLET (FP) PO SCH (10:05)
[2022-10-19] MEDS: NICOTINE 14 MG/24 HOURS TOPICAL PATCH TD SCH (10:06)
[2022-10-19] MEDS: diphenhydrAMINE HCL 50 MG CAPSULE PO PRN ×2 (10:25→22:05)
[2022-10-19] MEDS ORDERED: predniSONE 10 MG TABLET (UD) PO ONE ×2 (14:42→17:00)
[2022-10-19] MEDS ORDERED: MONTELUKAST NA 5 MG TAB.CHEW PO SCH (22:00)
[2022-10-19] MEDS: THIAMINE HCL 100 MG TABLET (FP) PO SCH (22:03)
[2022-10-19] MEDS: MELATONIN 5 MG TABLETS PO SCH (22:06)
[2022-10-20] MEDS: diazePAM 5 MG TABLET PO SCH ×2 (05:10→17:06)
[2022-10-20] MEDS: diphenhydrAMINE HCL 50 MG CAPSULE PO PRN ×2 (06:31→17:05)
[2022-10-20] MEDS: DOXYCYCLINE HYCLATE 100 MG TABLET PO SCH ×2 (07:38→17:05)
[2022-10-20] MEDS ORDERED: HYDROCORTISONE 2.5% LOTION - 1 BOTTLE TP PRN (07:45)
[2022-10-20] MEDS ORDERED: predniSONE 10 MG TABLET (UD) PO ONE (10:00)
[2022-10-20] MEDS ORDERED: predniSONE 20 MG TABLET (UD) PO ONE (10:00)
[2022-10-20] MEDS: PRENATAL VITAMINS W/ FOLIC ACID TABLET (FP) PO SCH (10:18)
[2022-10-20] MEDS: levETIRAcetam 500 MG TABLET (FP) PO SCH ×2 (10:19→22:28)
[2022-10-20] MEDS: METHOCARBAMOL 500 MG TABLET PO PRN (10:19)
[2022-10-20] MEDS: NICOTINE 14 MG/24 HOURS TOPICAL PATCH TD SCH (10:19)
[2022-10-20] MEDS: THIAMINE HCL 100 MG TABLET (FP) PO SCH (22:28)
[2022-10-20] MEDS: MELATONIN 5 MG TABLETS PO SCH (22:29)
[2022-10-21] MEDS ORDERED: diazePAM 5 MG TABLET PO ONE (06:00)
[2022-10-21] MEDS ORDERED: predniSONE 10 MG TABLET (UD) PO ONE ×2 (06:00)
[2022-10-21] MEDS: diphenhydrAMINE HCL 50 MG CAPSULE PO PRN (07:14)
[2022-10-21] MEDS: DOXYCYCLINE HYCLATE 100 MG TABLET PO SCH (07:15)
[2022-10-21 09:29] VITALS: BP 116/77; PULSE 65; RESP 16; TEMP 98
[2022-10-21] MEDS: levETIRAcetam 500 MG TABLET (FP) PO SCH (09:49)
[2022-10-21] MEDS: PRENATAL VITAMINS W/ FOLIC ACID TABLET (FP) PO SCH (09:49)
[2022-10-21] MEDS: NICOTINE 14 MG/24 HOURS TOPICAL PATCH TD SCH (09:50)
[2022-10-22] MEDS ORDERED: predniSONE 10 MG TABLET (UD) PO ONE (08:11)
== END 2022-10-21 10:20 | disposition home or self-care (01) | DRG 773 ==
LOC: YASAS 09:43 → Y6N 11:21
PROVIDERS: ADMIT Allergy & Immunology; ATTEND Surgery
PROC: HZ2ZZZZ Detoxification Services for Substance Abuse Treatment (ICD-10-PCS; principal; 2022-10-17)
DX: F10.230 Alcohol dependence with withdrawal, uncomplicated (principal); F13.230 Sedative, hypnotic or anxiolytic dependence with withdrawal, uncomplicated; F11.20 Opioid dependence, uncomplicated; F14.20 Cocaine dependence, uncomplicated; F12.20 Cannabis dependence, uncomplicated; F17.210 Nicotine dependence, cigarettes, uncomplicated; F19.24 Other psychoactive substance dependence with psychoactive substance-induced mood disorder; F43.10 Post-traumatic stress disorder, unspecified; G40.909 Epilepsy, unspecified, not intractable, without status epilepticus; R21 Rash and other nonspecific skin eruption; Z88.0 Allergy status to penicillin
CPT/HCPCS: 36415; 80053; 84132; 85027; 86780; 87635; 87811

== ENCOUNTER 2024-11-26 09:55 | Inpatient (IN) | payer OTHER ==
[2024-11-26 10:32] VITALS: BMI 25.1
[2024-11-26] MEDS ORDERED: MAGNESIUM HYDROX 2400MG/30ML ORAL SUSPENSION 30 ML CUP PO PRN (11:10)
[2024-11-26] MEDS ORDERED: NALOXONE (NARCAN) HCL 4 MG/0.1 ML SPRAY NS PRN (11:10)
[2024-11-26] MEDS ORDERED: BENZONATATE 200 MG CAPSULE PO PRN (11:10)
[2024-11-26] MEDS ORDERED: BISMUTH SUBSALICYLATE 524 MG/30 ML PO PRN (11:10)
[2024-11-26] MEDS ORDERED: BENZOCAINE/MENTHOL (CHLORASEPTIC ) LOZENGE MM PRN (11:10)
[2024-11-26] MEDS ORDERED: IBUPROFEN 600 MG TABLET (FP) PO PRN (11:10)
[2024-11-26] MEDS ORDERED: guaiFENesin 600 MG TABLET.ER (FP) PO PRN (11:10)
[2024-11-26] MEDS ORDERED: IBUPROFEN 400 MG TABLET (FP) PO PRN (11:10)
[2024-11-26] MEDS ORDERED: ONDANSETRON *ODT* 4 MG TABLET SL PRN (11:10)
[2024-11-26] MEDS ORDERED: POLYETHYLENE GLYCOL (HEALTHYLAX) 3350 17 GM PACKET PO PRN (11:10)
[2024-11-26] MEDS ORDERED: LOPERAMIDE HCL 2 MG CAPSULE PO PRN (11:10)
[2024-11-26] MEDS ORDERED: DICYCLOMINE HCL 10 MG CAPSULE PO PRN (11:10)
[2024-11-26] MEDS ORDERED: MAG HYDROX/AL HYDROX/SIMETH 30 ML UNIT-DOSE CUP PO PRN (11:10)
[2024-11-26] MEDS ORDERED: ACETAMINOPHEN 325 MG TABLET (FP) PO PRN (11:10)
[2024-11-26] MEDS: ACAMPROSATE CALCIUM 333 MG TABLET.DR PO SCH (14:28)
[2024-11-26] MEDS: THIAMINE 100 MG TABLET PO SCH (22:35)
[2024-11-26] MEDS: MELATONIN 5 MG TABLETS PO SCH (22:36)
[2024-11-27] MEDS: PRENATAL VITAMINS W/ FOLIC ACID TABLET (FP) PO SCH (10:09)
[2024-11-27] MEDS: NICOTINE 14 MG/24 HOURS TOPICAL PATCH TD SCH (10:10)
[2024-11-27] MEDS: hydrOXYzine PAMOATE 25 MG CAPSULE (FP) PO PRN (10:12)
[2024-11-27] MEDS: METHOCARBAMOL 500 MG TABLET PO PRN (10:13)
[2024-11-27] MEDS: SERTRALINE HCL 50 MG TABLET (FP) PO SCH (10:40)
[2024-11-27 10:41] LABS: MCHC 33.9 g/dl (32.3-36.5); MEAN CELL VOLUME 99.7 fl (79.0-92.2); MEAN PLT VOLUME 11.5 fl (9.4-12.4); RDW 13.7 % (12.1-15.9)
[2024-11-27 10:57] LABS: GLUCOSE,RANDOM 111.0 mg/dL (74-106)
[2024-11-27 10:58] LABS: TOT PROT 7.3 g/dl (6.4-8.2)
[2024-11-27 10:59] LABS: CO2 25.0 mmol/L (21-32)
[2024-11-27 11:00] LABS: ALK PHOS 124.0 U/L (40-150)
[2024-11-27 11:03] LABS: CREATININE 0.72 mg/dL (0.55-1.3); SGOT/AST 93.0 U/L (5-34); SGPT/ALT 39.0 U/L (0-55)
[2024-11-27] MEDS: TOPIRAMATE 25 MG TABLET PO SCH (22:10)
[2024-11-29 06:10] VITALS: RESP 16
[2024-11-30 09:31] VITALS: BP 120/82; PULSE 83; TEMP 97.7
== END 2024-11-30 11:00 | disposition home or self-care (01) | DRG 773 ==
LOC: YASAS 09:55 → Y6N 13:48
PROVIDERS: ADMIT Allergy & Immunology; ATTEND Counselor Addiction (Substance Use Disorder)
PROC: HZ2ZZZZ Detoxification Services for Substance Abuse Treatment (ICD-10-PCS; principal; 2024-11-26)
DX: F10.230 Alcohol dependence with withdrawal, uncomplicated (principal); F11.20 Opioid dependence, uncomplicated; F14.20 Cocaine dependence, uncomplicated; F13.20 Sedative, hypnotic or anxiolytic dependence, uncomplicated; F12.20 Cannabis dependence, uncomplicated; F17.210 Nicotine dependence, cigarettes, uncomplicated; F43.10 Post-traumatic stress disorder, unspecified; F41.9 Anxiety disorder, unspecified; F32.A Depression, unspecified; G40.909 Epilepsy, unspecified, not intractable, without status epilepticus
CPT/HCPCS: 36415; 80053; 80307; 82150; 83690; 85027; 86780; 86803; 93005; 93010